=== PATIENT | male | born 1945 | race Asian ===

== ENCOUNTER 2016-08-26 17:09 | Emergency (ER) | payer OTHER ==
[~2016-08-26] VITALS: Ht 167.6 cm; Wt 59.1 kg
[~2016-08-26 17:09] MED LIST: ALBU8.5H IH; ALLO300 PO; CELE200 PO; FLUT16H NASAL; GABA300C PO; MOME13HF IH; MONT10TA21 PO
[2016-08-26 17:44] LABS: BASOPHILS % (AUTO) 0.3 % (0.0-2.0); EOSINOPHILS % (AUTO) 2.1 % (1.0-6.0); HEMATOCRIT 48.1 % (41-53); LYMPHOCYTES # (AUTO) 1.9 K/uL (1.0-4.8); LYMPHOCYTES % (AUTO) 16.6 % (22.0-44.0); MEAN CORPUSCULAR HEMOGLOBIN 26.3 pg (26.0-34.0); MEAN CORPUSCULAR HGB CONC 31.2 G/dL (31.0-37.0); MEAN CORPUSCULAR VOLUME 84 fL (80-100); MONOCYTES # (AUTO) 1.6 K/uL (0.1-1.0); MONOCYTES % (AUTO) 13.8 % (2.0-9.0); NEUTROPHILS # (AUTO) 7.8 K/uL (1.8-7.7); NEUTROPHILS % (AUTO) 67.2 % (40.0-70.0); PLATELET COUNT (AUTO) 206 K/uL (150-450); RED BLOOD CELL COUNT(AUTO) 5.71 MIL/uL (4.50-5.90); RED CELL DISTRIBUTION WIDTH 14.6 % (11.5-14.5); WHITE BLOOD COUNT (AUTO) 11.6 K/uL (4.5-11.0)
[2016-08-26 17:51] LABS: CALCIUM, TOTAL 8.9 mg/dL (8.8-10.5); CREATININE 1.23 mg/dL (0.60-1.30); POTASSIUM 3.4 mmol/L (3.5-5.1)
[2016-08-26 17:56] LABS: ALBUMIN 3.7 g/dL (3.4-5.0); BILIRUBIN,TOTAL 0.3 mg/dL (0.1-1.0); TOTAL PROTEIN, SERUM 7.4 g/dL (6.4-8.2)
[2016-08-26] MEDS: ONDANSETRON HCL 4 MG/2 ML VIAL IVP ONE (19:17)
[2016-08-26] MEDS: MORPHINE SULFATE 4 MG/ML SYRINGE IVP ONE (19:18)
[2016-08-26 22:57] VITALS: BP 132/82
== END 2016-08-26 23:14 | disposition home or self-care (01) ==
LOC: EMS 17:10
DX: R07.89 Other chest pain (principal); F41.9 Anxiety disorder, unspecified; J45.909 Unspecified asthma, uncomplicated; J44.9 Chronic obstructive pulmonary disease, unspecified; I10 Essential (primary) hypertension; Z87.891 Personal history of nicotine dependence
CPT/HCPCS: 36415; 71010; 71260; 80053; 84484; 85025; 93005; 96374; 96375; 99285; J2270; J2405

== ENCOUNTER 2016-09-11 19:14 | Emergency (ER) | payer OTHER ==
[~2016-09-11] VITALS: Ht 165.1 cm; Wt 77.3 kg
[2016-09-11 19:31] LABS: GLUCOSE,POINT OF CARE 86 MG/DL (70-110)
[2016-09-11] MEDS ORDERED: SUCR1TAB PO (19:41)
[2016-09-11] MEDS ORDERED: OMEP20 PO (19:41)
[2016-09-11] MEDS ORDERED: CEPH125S23 PO (19:41)
[2016-09-11 21:37] LABS: APPEARANCE,URINE CLEAR (CLEAR); GLUCOSE, URINE (UA) NEGATIVE (NEGATIVE); KETONES,URINE NEGATIVE (NEGATIVE); LEUKOCYTE ESTERASE ,URINE NEGATIVE (NEGATIVE); OCCULT BLOOD,URINE NEGATIVE (NEGATIVE); PH,URINE 5.5 (5.0-8.0); PROTEIN,URINE NEGATIVE (NEGATIVE)
[2016-09-11 21:43] LABS: ADD UA MICROSCOPIC NO
[2016-09-11 22:05] LABS: ANION GAP 10 mmol/L (8-16); CALCIUM, TOTAL 9.5 mg/dL (8.8-10.5); CARBON DIOXIDE 29 mmol/L (22-29); CHLORIDE 102 mmol/L (98-107); CREATININE 1.07 mg/dL (0.60-1.30); GLOMERULAR FILTR. RATE CALC > 60 mL/min (>60); POTASSIUM 3.8 mmol/L (3.5-5.1); SODIUM SERUM 141 mmol/L (136-145); UREA NITROGEN, BLOOD 11 mg/dL (7-18)
[2016-09-11 22:29] LABS: ALANINE AMINOTRANSFERASE 41 U/L (12-78); ALBUMIN 4.5 g/dL (3.4-5.0); ASPARTATE AMINOTRANSFERASE 35 U/L (15-37); BILIRUBIN,TOTAL 0.6 mg/dL (0.1-1.0); CREATINE KINASE, TOTAL 256 U/L (39-308)
[2016-09-11 22:31] LABS: CREATINE KINASE MB < 0.5 ng/mL (0-5)
[2016-09-11] MEDS ORDERED: MethylPREDNISolone SOD SUCC 125 MG/2 ML VIAL IVP ONE (22:45)
[2016-09-11] MEDS ORDERED: ALBUTEROL SULFATE 2.5 MG/0.5 ML NEB SOLUTION NEB ONE (22:45)
[2016-09-11 22:47] LABS: BASOPHILS % (AUTO) 0.7 % (0.0-2.0); EOSINOPHILS % (AUTO) 2.3 % (1.0-6.0); HEMATOCRIT 45.9 % (41-53); HEMOGLOBIN 14.2 g/dL (13.5-17.5); LYMPHOCYTES # (AUTO) 1.9 K/uL (1.0-4.8); LYMPHOCYTES % (AUTO) 24.6 % (22.0-44.0); MEAN CORPUSCULAR HEMOGLOBIN 26.1 pg (26.0-34.0); MEAN CORPUSCULAR HGB CONC 30.9 G/dL (31.0-37.0); MEAN CORPUSCULAR VOLUME 85 fL (80-100); MONOCYTES # (AUTO) 0.9 K/uL (0.1-1.0); MONOCYTES % (AUTO) 11.3 % (2.0-9.0); NEUTROPHILS # (AUTO) 4.7 K/uL (1.8-7.7); NEUTROPHILS % (AUTO) 61.1 % (40.0-70.0); PLATELET COUNT (AUTO) 227 K/uL (150-450); RED BLOOD CELL COUNT(AUTO) 5.43 MIL/uL (4.50-5.90); RED CELL DISTRIBUTION WIDTH 13.9 % (11.5-14.5); WHITE BLOOD COUNT (AUTO) 7.7 K/uL (4.5-11.0)
[2016-09-11 22:48] LABS: PROTHROMBIN TIME 10.7 SEC (9.4-11.6)
[2016-09-11] MEDS ORDERED: 0.9% SODIUM CHLORIDE 5 ML NEB SOLUTION NEB ONE (23:01)
[2016-09-11 23:13] LABS: ORIG DRAW (USER) PTCARESTAF
[2016-09-11 23:17] LABS: RBC MORPHOLOGY COMMENT NORMAL RBC MORPH
[2016-09-11 23:20] VITALS: BP 143/87
== END 2016-09-11 23:49 | disposition home or self-care (01) ==
LOC: EMS 19:15
DX: J44.9 Chronic obstructive pulmonary disease, unspecified (principal); J45.909 Unspecified asthma, uncomplicated; I10 Essential (primary) hypertension; Z87.891 Personal history of nicotine dependence
CPT/HCPCS: 36415; 71010; 80053; 81003; 82550; 82553; 82962; 83880; 84484; 85025; 85610; 85730; 93005; 94640; 96374; 99285; J2930

== ENCOUNTER 2016-10-02 10:32 | Emergency (ER) | payer OTHER ==
[~2016-10-02] VITALS: Ht 167.6 cm; Wt 59.1 kg
[~2016-10-02 10:32] MED LIST changes: +CEPH125S23 PO; +OMEP20 PO; +SUCR1TAB PO
[2016-10-02] MEDS ORDERED: ASPIRIN 81 MG CHEWABLE TABLET PO ONE (11:15)
[2016-10-02 12:04] LABS: BASOPHILS # (AUTO) 0.05 K/uL (0.00-0.20); BASOPHILS % (AUTO) 0.9 % (0.0-2.0); EOSINOPHILS # (AUTO) 0.27 K/uL (0.00-0.70); EOSINOPHILS % (AUTO) 4.77 % (1.0-6.0); HEMATOCRIT 41.5 % (41-53); HEMOGLOBIN 13.2 g/dL (13.5-17.5); LYMPHOCYTES # (AUTO) 1.4 K/uL (1.0-4.8); LYMPHOCYTES % (AUTO) 25.6 % (22.0-44.0); MEAN CORPUSCULAR HEMOGLOBIN 26.9 pg (26.0-34.0); MEAN CORPUSCULAR HGB CONC 31.8 G/dL (31.0-37.0); MEAN CORPUSCULAR VOLUME 85 fL (80-100); MONOCYTES # (AUTO) 0.5 K/uL (0.1-1.0); MONOCYTES % (AUTO) 8.5 % (2.0-9.0); NEUTROPHILS # (AUTO) 3.4 K/uL (1.8-7.7); NEUTROPHILS % (AUTO) 60.2 % (40.0-70.0); PLATELET COUNT (AUTO) 170 K/uL (150-450); RED BLOOD CELL COUNT(AUTO) 4.91 MIL/uL (4.50-5.90); RED CELL DISTRIBUTION WIDTH 14.6 % (11.5-14.5); WHITE BLOOD COUNT (AUTO) 5.6 K/uL (4.5-11.0)
[2016-10-02 12:16] LABS: ANION GAP 9 mmol/L (8-16); CALCIUM, TOTAL 8.7 mg/dL (8.8-10.5); CARBON DIOXIDE 30 mmol/L (22-29); CHLORIDE 104 mmol/L (98-107); CREATININE 1.06 mg/dL (0.60-1.30); GLOMERULAR FILTR. RATE CALC > 60 mL/min (>60); POTASSIUM 3.4 mmol/L (3.5-5.1); SODIUM SERUM 143 mmol/L (136-145); UREA NITROGEN, BLOOD 10 mg/dL (7-18)
[2016-10-02 12:18] LABS: PROTHROMBIN TIME 10.7 SEC (9.4-11.6)
[2016-10-02 12:24] LABS: APPEARANCE,URINE CLEAR (CLEAR); GLUCOSE, URINE (UA) NEGATIVE (NEGATIVE); KETONES,URINE NEGATIVE (NEGATIVE); LEUKOCYTE ESTERASE ,URINE NEGATIVE (NEGATIVE); OCCULT BLOOD,URINE NEGATIVE (NEGATIVE); PH,URINE 6.5 (5.0-8.0); PROTEIN,URINE NEGATIVE (NEGATIVE)
[2016-10-02 12:26] LABS: ADD UA MICROSCOPIC NO
[2016-10-02 12:41] LABS: ALANINE AMINOTRANSFERASE 28 U/L (12-78); ALBUMIN 3.8 g/dL (3.4-5.0); ASPARTATE AMINOTRANSFERASE 20 U/L (15-37); BILIRUBIN,TOTAL 0.6 mg/dL (0.1-1.0); CREATINE KINASE MB < 0.5 ng/mL (0-5); CREATINE KINASE, TOTAL 172 U/L (39-308); TOTAL PROTEIN, SERUM 6.6 g/dL (6.4-8.2)
[2016-10-02 12:43] LABS: B-TYPE NATRIURETIC PEPTIDE 25 pg/mL (0-100)
[2016-10-02] MEDS ORDERED: ONDANSETRON HCL 4 MG/2 ML VIAL IVP ONE (13:00)
[2016-10-02] MEDS ORDERED: SODIUM CHLORIDE 0.9% 1,000 ML IV ONE (13:00)
[2016-10-02] MEDS ORDERED: HYDROmorphone 2 MG/ML SYRINGE IVP ONE (13:00)
[2016-10-02] MEDS ORDERED: IOVERSOL 350 MG/ML 100 ML VIAL ONE (13:38)
[2016-10-02] MEDS ORDERED: SODIUM CHLORIDE 0.9% 100 ML ONE (13:38)
[2016-10-02 17:50] VITALS: BP 170/80
[2016-10-03] MEDS ORDERED: ASPIRIN 81 MG CHEWABLE TABLET PO ONE (10:00)
[2016-10-03] MEDS ORDERED: NITROGLYCERIN 2% (1 GM=INCH) PACKET TP ONE ×2 (10:00→10:30)
[2016-10-03] MEDS ORDERED: OXYGEN THERAPY IH SCH (10:00)
[2016-10-03] MEDS ORDERED: HYDROCODONE/ACETAMINOPHEN 5-325 MG TABLET PO ONE (10:00)
== END 2016-10-02 17:53 | disposition home or self-care (01) ==
LOC: EMS 10:33
DX: R07.89 Other chest pain (principal); R51 Headache; J44.9 Chronic obstructive pulmonary disease, unspecified; J45.909 Unspecified asthma, uncomplicated; I10 Essential (primary) hypertension; Z87.891 Personal history of nicotine dependence
CPT/HCPCS: 36415; 71010; 71275; 80053; 81003; 82550; 82553; 83880; 84484; 85025; 85379; 85610; 85730; 93005; 96361; 96374; 96375; 99285; J1170; J2405; J7030; J7050; Q9967

== ENCOUNTER 2016-10-02 22:05 | Inpatient (IN) | payer OTHER ==
[~2016-10-02] VITALS: Ht 167.6 cm; Wt 56.8 kg
[2016-10-03] VITALS (7 sets, daily range): BP systolic 113–146; BP diastolic 66–75
[2016-10-03] MEDS ORDERED: ASPIRIN 325 MG TABLET PO ONE
[2016-10-03] MEDS ORDERED: ONDANSETRON HCL 4 MG/2 ML VIAL IVP ONE
[2016-10-03] MEDS ORDERED: NITROGLYCERIN 0.4 MG SUBLINGUAL TABLET #25 SL ONE
[2016-10-03 00:20] LABS: BASOPHILS % (AUTO) 0.6 % (0.0-2.0); EOSINOPHILS % (AUTO) 5.6 % (1.0-6.0); HEMATOCRIT 39.8 % (41-53); HEMOGLOBIN 12.3 g/dL (13.5-17.5); LYMPHOCYTES # (AUTO) 1.6 K/uL (1.0-4.8); LYMPHOCYTES % (AUTO) 25.6 % (22.0-44.0); MEAN CORPUSCULAR HEMOGLOBIN 26.1 pg (26.0-34.0); MEAN CORPUSCULAR VOLUME 84 fL (80-100); MONOCYTES # (AUTO) 0.7 K/uL (0.1-1.0); MONOCYTES % (AUTO) 11.2 % (2.0-9.0); NEUTROPHILS # (AUTO) 3.5 K/uL (1.8-7.7); PLATELET COUNT (AUTO) 166 K/uL (150-450); RED BLOOD CELL COUNT(AUTO) 4.73 MIL/uL (4.50-5.90); RED CELL DISTRIBUTION WIDTH 14.6 % (11.5-14.5); WHITE BLOOD COUNT (AUTO) 6.2 K/uL (4.5-11.0)
[2016-10-03 00:31] LABS: ANION GAP 8 mmol/L (8-16); CALCIUM, TOTAL 8.3 mg/dL (8.8-10.5); CARBON DIOXIDE 27 mmol/L (22-29); CHLORIDE 106 mmol/L (98-107); GLOMERULAR FILTR. RATE CALC > 60 mL/min (>60); POTASSIUM 3.4 mmol/L (3.5-5.1); SODIUM SERUM 141 mmol/L (136-145); UREA NITROGEN, BLOOD 9 mg/dL (7-18)
[2016-10-03 00:37] LABS: ALANINE AMINOTRANSFERASE 21 U/L (12-78); ALBUMIN 3.5 g/dL (3.4-5.0); ASPARTATE AMINOTRANSFERASE 18 U/L (15-37); BILIRUBIN,TOTAL 0.7 mg/dL (0.1-1.0); TOTAL PROTEIN, SERUM 6.2 g/dL (6.4-8.2)
[2016-10-03] MEDS ORDERED: ACETAMINOPHEN 325 MG TABLET PO PRN (02:45)
[2016-10-03] MEDS ORDERED: 0.9% SODIUM CHLORIDE 10 ML SYRINGE IVP PRN (02:45)
[2016-10-03] MEDS ORDERED: ONDANSETRON HCL 4 MG/2 ML VIAL IVP PRN ×2 (02:45→13:15)
[2016-10-03] MEDS ORDERED: POTASSIUM CHLORIDE 10% 40 MEQ/30 ML LIQUID UDCUP PO ONE (05:00)
[2016-10-03] MEDS ORDERED: HYDROCODONE/ACETAMINOPHEN 5-325 MG TABLET PO PRN (10:45)
[2016-10-03] MEDS: OXYGEN THERAPY IH SCH ×2 (11:34→19:24)
[2016-10-03] MEDS: NITROGLYCERIN 2% (1 GM=INCH) PACKET TP SCH ×2 (11:40→17:52)
[2016-10-03] MEDS: HEPARIN SODIUM,PORCINE 5,000 UNITS/ML VIAL SQ SCH ×2 (11:40→16:00)
[2016-10-03] MEDS: ASPIRIN 81 MG CHEWABLE TABLET PO SCH (11:41)
[2016-10-03] MEDS: CEPHALEXIN MONOHYDRATE 500 MG CAPSULE PO SCH ×2 (14:10→17:52)
[2016-10-03] MEDS: GABAPENTIN 300 MG CAPSULE PO SCH ×2 (16:12→21:50)
[2016-10-03] MEDS: SUCRALFATE 1 GM TABLET PO SCH ×2 (16:12→21:49)
[2016-10-03] MEDS ORDERED: FORMOTEROL IH SCH (21:00)
[2016-10-03] MEDS ORDERED: MOMETASONE IH SCH (21:00)
[2016-10-03] MEDS: FLUTICASONE PROPIONATE 50 MCG/SPRAY 16 GM NASAL SPRAY NASAL SCH (21:49)
[2016-10-03] MEDS: OMEPRAZOLE 20 MG CAPSULE PO SCH (21:49)
[2016-10-03] MEDS: IBUPROFEN 400 MG TABLET PO PRN (21:50)
[2016-10-04] MEDS: HEPARIN SODIUM,PORCINE 5,000 UNITS/ML VIAL SQ SCH ×3 (00:15→16:52)
[2016-10-04] MEDS: CEPHALEXIN MONOHYDRATE 500 MG CAPSULE PO SCH ×3 (00:16→12:24)
[2016-10-04] MEDS: NITROGLYCERIN 2% (1 GM=INCH) PACKET TP SCH ×3 (00:16→12:24)
[2016-10-04 04:44] VITALS: BP 130/74
[2016-10-04 06:39] LABS: BASOPHILS % (AUTO) 0.8 % (0.0-2.0); EOSINOPHILS % (AUTO) 9.1 % (1.0-6.0); HEMATOCRIT 40.2 % (41-53); HEMOGLOBIN 12.4 g/dL (13.5-17.5); LYMPHOCYTES # (AUTO) 1.5 K/uL (1.0-4.8); LYMPHOCYTES % (AUTO) 25.4 % (22.0-44.0); MEAN CORPUSCULAR HEMOGLOBIN 25.9 pg (26.0-34.0); MEAN CORPUSCULAR HGB CONC 30.9 G/dL (31.0-37.0); MEAN CORPUSCULAR VOLUME 84 fL (80-100); MONOCYTES # (AUTO) 0.6 K/uL (0.1-1.0); MONOCYTES % (AUTO) 10.9 % (2.0-9.0); NEUTROPHILS # (AUTO) 3.1 K/uL (1.8-7.7); NEUTROPHILS % (AUTO) 53.8 % (40.0-70.0); PLATELET COUNT (AUTO) 178 K/uL (150-450); RED BLOOD CELL COUNT(AUTO) 4.78 MIL/uL (4.50-5.90); RED CELL DISTRIBUTION WIDTH 13.9 % (11.5-14.5); WHITE BLOOD COUNT (AUTO) 5.8 K/uL (4.5-11.0)
[2016-10-04 06:53] LABS: HEMOGLOBIN A1C 5.5 % (4.5-6.2)
[2016-10-04 06:58] LABS: ALANINE AMINOTRANSFERASE 26 U/L (12-78); ALBUMIN 3.3 g/dL (3.4-5.0); ANION GAP 8 mmol/L (8-16); ASPARTATE AMINOTRANSFERASE 22 U/L (15-37); BILIRUBIN,TOTAL 0.5 mg/dL (0.1-1.0); CALCIUM, TOTAL 8.7 mg/dL (8.8-10.5); CARBON DIOXIDE 28 mmol/L (22-29); CHLORIDE 105 mmol/L (98-107); CHOL/HDL RATIO 2.8 (4.2-7.3); CREATININE 0.96 mg/dL (0.60-1.30); GLOMERULAR FILTR. RATE CALC > 60 mL/min (>60); POTASSIUM 3.7 mmol/L (3.5-5.1); SODIUM SERUM 141 mmol/L (136-145); TOTAL PROTEIN, SERUM 6.1 g/dL (6.4-8.2); UREA NITROGEN, BLOOD 10 mg/dL (7-18)
[2016-10-04 07:07] VITALS: BP 121/68
[2016-10-04] MEDS: OXYGEN THERAPY IH SCH (08:46)
[2016-10-04] MEDS: FLUTICASONE PROPIONATE 50 MCG/SPRAY 16 GM NASAL SPRAY NASAL SCH (08:47)
[2016-10-04] MEDS: OMEPRAZOLE 20 MG CAPSULE PO SCH (08:48)
[2016-10-04] MEDS: ASPIRIN 81 MG CHEWABLE TABLET PO SCH (08:48)
[2016-10-04] MEDS: GABAPENTIN 300 MG CAPSULE PO SCH ×2 (08:48→16:52)
[2016-10-04] MEDS: SUCRALFATE 1 GM TABLET PO SCH (08:49)
[2016-10-04] MEDS: IBUPROFEN 400 MG TABLET PO PRN (08:51)
[2016-10-04] MEDS ORDERED: MONTELUKAST SODIUM 10 MG TABLET PO SCH (09:00)
[2016-10-04] MEDS ORDERED: ALLOPURINOL 300 MG TABLET PO SCH (09:00)
[2016-10-04] MEDS ORDERED: CELECOXIB 200 MG CAPSULE PO SCH (09:00)
[2016-10-04] MEDS ORDERED: CEPH500 PO (10:46)
[2016-10-04 11:36] VITALS: BP 143/73
[2016-10-04 15:17] VITALS: BP 102/55
== END 2016-10-04 18:17 | disposition home or self-care (01) | DRG 313 ==
LOC: EMS 22:06 → AHU 10-03 08:36 → 5S 10-03 18:51
PROVIDERS: ADMIT Family Medicine; ATTEND Family Medicine
DX: R07.89 Other chest pain (principal); J44.1 Chronic obstructive pulmonary disease with (acute) exacerbation; I10 Essential (primary) hypertension; F41.9 Anxiety disorder, unspecified; J45.909 Unspecified asthma, uncomplicated; G89.4 Chronic pain syndrome; Z79.899 Other long term (current) drug therapy; Z90.2 Acquired absence of lung [part of]; Z87.01 Personal history of pneumonia (recurrent); Z86.711 Personal history of pulmonary embolism; Z87.891 Personal history of nicotine dependence
CPT/HCPCS: 83036; 83735; 93005; 93306; 96374; 99285; J1644; J2405

== ENCOUNTER 2017-07-17 11:25 | Emergency (ER) | payer MEDICARE, OTHER ==
[~2017-07-17] VITALS: Ht 167.6 cm; Wt 62.7 kg
[~2017-07-17 11:25] MED LIST changes: -ALBU8.5H IH; +ALBU8.5H8 IH; -CEPH125S23 PO; +CEPH500 PO
[2017-07-17] MEDS ORDERED: ACYC800T PO (11:40)
[2017-07-17] MEDS ORDERED: LEVO5TAB13 PO (11:40)
[2017-07-17] MEDS ORDERED: DIPH25 PO (11:40)
[2017-07-17] MEDS ORDERED: IBUPROFEN 800 MG TABLET PO ONE (14:15)
[2017-07-17 14:31] VITALS: BP 164/75
== END 2017-07-17 14:51 | disposition home or self-care (01) ==
LOC: EMS 11:27
DX: B02.9 Zoster without complications (principal); J45.909 Unspecified asthma, uncomplicated; I10 Essential (primary) hypertension; J18.9 Pneumonia, unspecified organism; G89.29 Other chronic pain; Z86.711 Personal history of pulmonary embolism; Z87.891 Personal history of nicotine dependence; Z79.899 Other long term (current) drug therapy
CPT/HCPCS: 99283

== ENCOUNTER 2017-09-10 16:51 | Emergency (ER) | payer MEDICARE, OTHER ==
[~2017-09-10] VITALS: Ht 167.6 cm; Wt 58.2 kg
[~2017-09-10 16:51] MED LIST changes: +ACYC800T PO; -ALLO300 PO; -CELE200 PO; -CEPH500 PO; +DIPH25 PO; -FLUT16H NASAL; +LEVO5TAB13 PO; -OMEP20 PO; -SUCR1TAB PO
[2017-09-10] MEDS ORDERED: PRED10 PO (17:05)
[2017-09-10] MEDS ORDERED: AMLO-512 PO (17:05)
[2017-09-10] MEDS ORDERED: LISI1TAB11 PO (17:05)
[2017-09-10] MEDS ORDERED: SODIUM CHLORIDE 0.9% 1,000 ML IV ONE (17:45)
[2017-09-10 18:03] LABS: BASOPHILS % (AUTO) 0.5 % (0.0-2.0); EOSINOPHILS % (AUTO) 4.2 % (1.0-6.0); HEMATOCRIT 43.5 % (41-53); HEMOGLOBIN 14.1 g/dL (13.5-17.5); LYMPHOCYTES # (AUTO) 1.6 K/uL (1.0-4.8); LYMPHOCYTES % (AUTO) 11.9 % (22.0-44.0); MEAN CORPUSCULAR HEMOGLOBIN 27.3 pg (26.0-34.0); MEAN CORPUSCULAR HGB CONC 32.3 G/dL (31.0-37.0); MEAN CORPUSCULAR VOLUME 85 fL (80-100); MONOCYTES # (AUTO) 1.6 K/uL (0.1-1.0); MONOCYTES % (AUTO) 12.1 % (2.0-9.0); NEUTROPHILS # (AUTO) 9.3 K/uL (1.8-7.7); NEUTROPHILS % (AUTO) 71.3 % (40.0-70.0); PLATELET COUNT (AUTO) 223 K/uL (150-450); RED BLOOD CELL COUNT(AUTO) 5.15 MIL/uL (4.50-5.90)
[2017-09-10 18:12] LABS: CREATININE 2.69 mg/dL (0.60-1.30)
[2017-09-10 18:19] LABS: ALBUMIN 3.4 g/dL (3.4-5.0); BILIRUBIN,TOTAL 0.3 mg/dL (0.1-1.0); TOTAL PROTEIN, SERUM 6.5 g/dL (6.4-8.2)
[2017-09-10 20:58] VITALS: BP 123/71
== END 2017-09-10 21:06 | disposition home or self-care (01) ==
LOC: EMS 16:52
DX: R42 Dizziness and giddiness (principal); R21 Rash and other nonspecific skin eruption; N28.9 Disorder of kidney and ureter, unspecified; J44.9 Chronic obstructive pulmonary disease, unspecified; J45.909 Unspecified asthma, uncomplicated; I10 Essential (primary) hypertension; Z87.891 Personal history of nicotine dependence
CPT/HCPCS: 96360; 96361; 99285

== ENCOUNTER 2017-09-11 20:34 | Emergency (ER) | payer MEDICARE, OTHER ==
[~2017-09-11] VITALS: Ht 165.1 cm; Wt 67.3 kg
[~2017-09-11 20:34] MED LIST changes: +AMLO-512 PO; +LISI1TAB11 PO; +PRED10 PO
[2017-09-11] MEDS ORDERED: SODIUM CHLORIDE 0.9% 1,000 ML IV ONE (23:00)
[2017-09-11 23:34] LABS: EOSINOPHILS % (AUTO) 3.8 % (1.0-6.0); HEMATOCRIT 42.8 % (41-53); HEMOGLOBIN 13.8 g/dL (13.5-17.5); LYMPHOCYTES # (AUTO) 1.6 K/uL (1.0-4.8); LYMPHOCYTES % (AUTO) 13.6 % (22.0-44.0); MEAN CORPUSCULAR HEMOGLOBIN 27.5 pg (26.0-34.0); MEAN CORPUSCULAR HGB CONC 32.3 G/dL (31.0-37.0); MEAN CORPUSCULAR VOLUME 85 fL (80-100); MONOCYTES # (AUTO) 1.1 K/uL (0.1-1.0); MONOCYTES % (AUTO) 9.7 % (2.0-9.0); NEUTROPHILS # (AUTO) 8.3 K/uL (1.8-7.7); NEUTROPHILS % (AUTO) 71.9 % (40.0-70.0); PLATELET COUNT (AUTO) 202 K/uL (150-450); RED BLOOD CELL COUNT(AUTO) 5.03 MIL/uL (4.50-5.90); RED CELL DISTRIBUTION WIDTH 14.9 % (11.5-14.5)
[2017-09-11 23:46] LABS: ANION GAP 8 mmol/L (8-16); CALCIUM, TOTAL 9.1 mg/dL (8.8-10.5); CARBON DIOXIDE 27 mmol/L (22-29); CHLORIDE 102 mmol/L (98-107); CREATININE 1.59 mg/dL (0.60-1.30); GLOMERULAR FILTR. RATE CALC 43 mL/min (>60); GLUCOSE,RANDOM 75 mg/dL (70-110); POTASSIUM 4.4 mmol/L (3.5-5.1); SODIUM SERUM 137 mmol/L (136-145); UREA NITROGEN, BLOOD 24 mg/dL (7-18)
[2017-09-11 23:57] LABS: B-TYPE NATRIURETIC PEPTIDE 15 pg/mL (0-100)
[2017-09-12 00:11] LABS: ALANINE AMINOTRANSFERASE 60 U/L (12-78); ALBUMIN 3.6 g/dL (3.4-5.0); ALKALINE PHOSPHATASE 63 U/L (46-116); ASPARTATE AMINOTRANSFERASE 25 U/L (15-37); BILIRUBIN,TOTAL 0.5 mg/dL (0.1-1.0); CREATINE KINASE MB 1.4 ng/mL (0-5); CREATINE KINASE, TOTAL 129 U/L (39-308); TOTAL PROTEIN, SERUM 6.8 g/dL (6.4-8.2)
[2017-09-12] MEDS ORDERED: SODIUM CHLORIDE 0.9% 1,000 ML IV ONE (00:30)
[2017-09-12] MEDS ORDERED: MECLIZINE HCL 25 MG TABLET PO ONE (00:30)
[2017-09-12 00:41] LABS: APPEARANCE,URINE CLEAR (CLEAR); BILIRUBIN,URINE NEGATIVE (NEGATIVE); GLUCOSE, URINE (UA) NEGATIVE (NEGATIVE); KETONES,URINE NEGATIVE (NEGATIVE); LEUKOCYTE ESTERASE ,URINE NEGATIVE (NEGATIVE); NITRATE,URINE NEGATIVE (NEGATIVE); OCCULT BLOOD,URINE NEGATIVE (NEGATIVE); PH,URINE 6.5 (5.0-8.0); PROTEIN,URINE NEGATIVE (NEGATIVE); UROBILINOGEN,URINE 0.2 mg/dL (<=1.0)
[2017-09-12 00:47] LABS: AMPHET/METH SCREEN,URINE NEGATIVE (NEGATIVE); BARBITURATE SCREEN, URINE NEGATIVE (NEGATIVE); BENZODIAZEPINES SCREEN,URINE NEGATIVE (NEGATIVE); CANNABINOID SCREEN,URINE NEGATIVE (NEGATIVE); COCAINE SCREEN,URINE NEGATIVE (NEGATIVE); METHADONE SCREEN, URINE NEGATIVE (NEGATIVE); OPIATE SCREEN,URINE NEGATIVE (NEGATIVE)
[2017-09-12 00:48] LABS: PHENCYCLIDINE SCREEN,URINE NEGATIVE (NEGATIVE)
[2017-09-12 01:19] VITALS: BP 120/74
== END 2017-09-12 01:53 | disposition home or self-care (01) ==
LOC: EMS 20:36
DX: R42 Dizziness and giddiness (principal); N19 Unspecified kidney failure; J45.909 Unspecified asthma, uncomplicated; J44.9 Chronic obstructive pulmonary disease, unspecified; I10 Essential (primary) hypertension; G89.29 Other chronic pain; Z86.711 Personal history of pulmonary embolism; Z87.891 Personal history of nicotine dependence; Z79.899 Other long term (current) drug therapy
CPT/HCPCS: 36415; 80053; 80307; 81003; 82550; 82553; 83880; 84484; 85025; 93005; 96360; 96361; 99285; J7030

== ENCOUNTER 2017-09-17 23:45 | Inpatient (IN) | payer MEDICARE, OTHER ==
[~2017-09-17] VITALS: Ht 167.6 cm; Wt 55.8 kg
[~2017-09-17 23:45] MED LIST changes: -ACYC800T PO; -DIPH25 PO; -LEVO5TAB13 PO; -MOME13HF IH; -MONT10TA21 PO
[2017-09-18 00:47] LABS: BASOPHILS % (AUTO) 0.6 % (0.0-2.0); EOSINOPHILS % (AUTO) 6.3 % (1.0-6.0); HEMATOCRIT 37.8 % (41-53); HEMOGLOBIN 12.4 g/dL (13.5-17.5); LYMPHOCYTES # (AUTO) 1.5 K/uL (1.0-4.8); LYMPHOCYTES % (AUTO) 9.5 % (22.0-44.0); MEAN CORPUSCULAR HEMOGLOBIN 27.8 pg (26.0-34.0); MEAN CORPUSCULAR HGB CONC 32.9 G/dL (31.0-37.0); MEAN CORPUSCULAR VOLUME 85 fL (80-100); MONOCYTES # (AUTO) 1.6 K/uL (0.1-1.0); MONOCYTES % (AUTO) 10.7 % (2.0-9.0); NEUTROPHILS # (AUTO) 11.2 K/uL (1.8-7.7); NEUTROPHILS % (AUTO) 72.9 % (40.0-70.0); PLATELET COUNT (AUTO) 231 K/uL (150-450); RED BLOOD CELL COUNT(AUTO) 4.47 MIL/uL (4.50-5.90); RED CELL DISTRIBUTION WIDTH 14.9 % (11.5-14.5)
[2017-09-18 00:54] LABS: CALCIUM, TOTAL 8.9 mg/dL (8.8-10.5); CREATININE 2.06 mg/dL (0.60-1.30); POTASSIUM 4.1 mmol/L (3.5-5.1)
[2017-09-18 01:00] LABS: BILIRUBIN,TOTAL 0.3 mg/dL (0.1-1.0); TOTAL PROTEIN, SERUM 6.2 g/dL (6.4-8.2)
[2017-09-18] MEDS ORDERED: FentaNYL CITRATE-PF 100 MCG/2 ML VIAL IVP ONE (01:00)
[2017-09-18] MEDS ORDERED: ONDANSETRON HCL 4 MG/2 ML VIAL IVP ONE (01:00)
[2017-09-18] MEDS ORDERED: SODIUM CHLORIDE 0.9% 1,000 ML IV ONE (01:00)
[2017-09-18 02:16] LABS: APPEARANCE,URINE CLEAR (CLEAR); BILIRUBIN,URINE NEGATIVE (NEGATIVE); GLUCOSE, URINE (UA) NEGATIVE (NEGATIVE); KETONES,URINE NEGATIVE (NEGATIVE); LEUKOCYTE ESTERASE ,URINE NEGATIVE (NEGATIVE); NITRATE,URINE NEGATIVE (NEGATIVE); OCCULT BLOOD,URINE NEGATIVE (NEGATIVE); PH,URINE 5.5 (5.0-8.0); PROTEIN,URINE NEGATIVE (NEGATIVE); UROBILINOGEN,URINE 0.2 mg/dL (<=1.0)
[2017-09-18 02:33] LABS: BACTERIA,URINE None Seen /HPF (None Seen); RBC,URINE None Seen /HPF (0-2); SQUAMOUS EPITHELIAL CELL,UR None Seen /LPF (None Seen); WBC,URINE None Seen /HPF (0-5)
[2017-09-18] MEDS ORDERED: DEXTROSE 5%-0.45% SODIUM CHL 1,000 ML IV ONE (03:00)
[2017-09-18] MEDS ORDERED: 0.9% SODIUM CHLORIDE 10 ML SYRINGE IVP PRN ×2 (03:00→18:30)
[2017-09-18] MEDS ORDERED: ONDANSETRON HCL 4 MG/2 ML VIAL IVP PRN ×2 (03:00→18:30)
[2017-09-18] MEDS ORDERED: ACETAMINOPHEN 325 MG TABLET PO PRN (03:00)
[2017-09-18 04:07] VITALS: BP 125/78
[2017-09-18 08:14] VITALS: BP 143/79
[2017-09-18 11:27] VITALS: BP 121/62
[2017-09-18] MEDS ORDERED: MORPHINE SULFATE 4 MG/ML SYRINGE IVP PRN (18:45)
[2017-09-18] MEDS: PANTOPRAZOLE SODIUM 40 MG/VIAL IVP SCH (19:02)
[2017-09-18] MEDS: MORPHINE SULFATE 4 MG/ML SYRINGE IVP PRN (19:02)
[2017-09-18] MEDS: PIPERACILLIN/TAZO 3.375 GM/D5W 50 ML IV SCH (19:05)
[2017-09-18] MEDS: DEXTROSE 5%-0.45% SODIUM CHL 1,000 ML IV SCH (19:06)
[2017-09-18] MEDS ORDERED: PERMETHRIN 5% 60 GM CREAM TP ONE (19:45)
[2017-09-18 20:06] VITALS: BP 113/56
[2017-09-18 23:17] VITALS: BP 113/68
[2017-09-19] MEDS: PIPERACILLIN/TAZO 3.375 GM/D5W 50 ML IV SCH ×4 (00:06→19:43)
[2017-09-19] MEDS: DEXTROSE 5%-0.45% SODIUM CHL 1,000 ML IV SCH ×3 (03:29→19:42)
[2017-09-19 04:22] VITALS: BP 116/65
[2017-09-19 06:26] LABS: ALBUMIN 2.8 g/dL (3.4-5.0); BILIRUBIN,TOTAL 0.8 mg/dL (0.1-1.0); CALCIUM, TOTAL 8.3 mg/dL (8.8-10.5); CREATININE 1.54 mg/dL (0.60-1.30); MAGNESIUM 1.5 mg/dL (1.80-2.40); POTASSIUM 4.1 mmol/L (3.5-5.1); TOTAL PROTEIN, SERUM 5.9 g/dL (6.4-8.2)
[2017-09-19 08:00] VITALS: BP 109/60
[2017-09-19 08:32] LABS: BASOPHILS % (AUTO) 0.7 % (0.0-2.0); HEMATOCRIT 40.1 % (41-53); HEMOGLOBIN 13.2 g/dL (13.5-17.5); LYMPHOCYTES # (AUTO) 1.4 K/uL (1.0-4.8); LYMPHOCYTES % (AUTO) 11.5 % (22.0-44.0); MEAN CORPUSCULAR HEMOGLOBIN 27.8 pg (26.0-34.0); MEAN CORPUSCULAR VOLUME 84 fL (80-100); MONOCYTES # (AUTO) 1.3 K/uL (0.1-1.0); MONOCYTES % (AUTO) 11.1 % (2.0-9.0); NEUTROPHILS # (AUTO) 7.8 K/uL (1.8-7.7); NEUTROPHILS % (AUTO) 65.7 % (40.0-70.0); PLATELET COUNT (AUTO) 223 K/uL (150-450); RED BLOOD CELL COUNT(AUTO) 4.75 MIL/uL (4.50-5.90); RED CELL DISTRIBUTION WIDTH 14.7 % (11.5-14.5)
[2017-09-19] MEDS: PANTOPRAZOLE SODIUM 40 MG/VIAL IVP SCH (09:19)
[2017-09-19 11:25] VITALS: BP 115/68
[2017-09-19] MEDS ORDERED: MAGNESIUM SULFATE 2 GM in DEXTROSE 5%-WATER 50 ML IV ONE (15:00)
[2017-09-19 15:44] VITALS: BP 109/57
[2017-09-19] MEDS ORDERED: BISACODYL 10 MG RECTAL RECTAL SUPPOSITORY PR ONE (16:45)
[2017-09-19 20:49] VITALS: BP 115/67
[2017-09-19 23:35] VITALS: BP 115/58
[2017-09-20] MEDS: PIPERACILLIN/TAZO 3.375 GM/D5W 50 ML IV SCH ×4 (00:46→18:20)
[2017-09-20 04:47] VITALS: BP 115/69
[2017-09-20 07:02] LABS: BASOPHILS % (AUTO) 0.9 % (0.0-2.0); HEMATOCRIT 38.3 % (41-53); HEMOGLOBIN 12.8 g/dL (13.5-17.5); LYMPHOCYTES % (AUTO) 10.3 % (22.0-44.0); MEAN CORPUSCULAR HEMOGLOBIN 28.1 pg (26.0-34.0); MEAN CORPUSCULAR HGB CONC 33.5 G/dL (31.0-37.0); MEAN CORPUSCULAR VOLUME 84 fL (80-100); MONOCYTES # (AUTO) 1.1 K/uL (0.1-1.0); MONOCYTES % (AUTO) 11.4 % (2.0-9.0); NEUTROPHILS # (AUTO) 6.3 K/uL (1.8-7.7); NEUTROPHILS % (AUTO) 64.4 % (40.0-70.0); PLATELET COUNT (AUTO) 225 K/uL (150-450); RED BLOOD CELL COUNT(AUTO) 4.56 MIL/uL (4.50-5.90); RED CELL DISTRIBUTION WIDTH 14.9 % (11.5-14.5)
[2017-09-20 07:03] LABS: PROTHROMBIN TIME 10.7 SEC (9.4-11.6)
[2017-09-20 07:31] LABS: CALCIUM, TOTAL 8.3 mg/dL (8.8-10.5); CREATININE 1.44 mg/dL (0.60-1.30); MAGNESIUM 2.1 mg/dL (1.80-2.40); POTASSIUM 3.8 mmol/L (3.5-5.1)
[2017-09-20 08:01] VITALS: BP 132/71
[2017-09-20] MEDS ORDERED: SODIUM CHLORIDE 0.9% 1,000 ML IV ONE ×2 (10:00→10:19)
[2017-09-20] MEDS ORDERED: BUPIVACAINE/EPI/PF 0.5% 30 ML VIAL ONE (10:28)
[2017-09-20] MEDS ORDERED: SODIUM CL IRRIG SOLN BAG 3,000 ML IRRIG ONE (10:29)
[2017-09-20] MEDS ORDERED: MORPHINE SULFATE 4 MG/ML SYRINGE ONE (11:27)
[2017-09-20] MEDS: MORPHINE SULFATE 4 MG/ML SYRINGE IVP PRN (11:31)
[2017-09-20] MEDS ORDERED: FentaNYL CITRATE-PF 100 MCG/2 ML VIAL IVP ONE (12:00)
[2017-09-20] MEDS ORDERED: GUM MASTIC/STORAX/MSAL/ALCOHOL LIQUID 0.67 ML VIAL TP ONE (12:29)
[2017-09-20] MEDS ORDERED: RINGERS SOLUTION,LACTATED 1,000 ML IV ONE (12:44)
[2017-09-20] MEDS ORDERED: ALBUTEROL SULFATE 2.5 MG/0.5 ML NEB SOLUTION NEB PRN (13:15)
[2017-09-20] MEDS ORDERED: IPRATROPIUM BROMIDE 0.5 MG/2.5 ML NEB SOLUTION NEB PRN (13:15)
[2017-09-20] MEDS ORDERED: IPRATROPIUM BROMIDE 0.5 MG/2.5 ML NEB SOLUTION NEB ONE (13:28)
[2017-09-20] MEDS ORDERED: ALBUTEROL SULFATE 2.5 MG/0.5 ML NEB SOLUTION NEB ONE (13:28)
[2017-09-20] MEDS ORDERED: 0.9% SODIUM CHLORIDE 5 ML NEB SOLUTION NEB ONE (13:29)
[2017-09-20] MEDS ORDERED: HYDROmorphone 2 MG/ML SYRINGE IVP PRN (13:30)
[2017-09-20] MEDS ORDERED: MEPERIDINE-PF 25 MG/ML SYRINGE IVP PRN (13:30)
[2017-09-20] MEDS ORDERED: FentaNYL CITRATE-PF 100 MCG/2 ML VIAL IVP PRN (13:30)
[2017-09-20 14:31] VITALS: BP 122/69
[2017-09-20] MEDS: HYDROmorphone 2 MG/ML SYRINGE IVP PRN ×2 (14:41→18:20)
[2017-09-20 17:20] VITALS: BP 132/78
[2017-09-20] MEDS: PANTOPRAZOLE SODIUM 40 MG/VIAL IVP SCH (18:20)
[2017-09-20 19:45] VITALS: BP 124/72
[2017-09-21 00:10] VITALS: BP 113/69
[2017-09-21] MEDS: HYDROCODONE/ACETAMINOPHEN 5-325 MG TABLET PO PRN (00:27)
[2017-09-21] MEDS: DEXTROSE 5%-0.45% SODIUM CHL 1,000 ML IV SCH ×3 (00:29→17:57)
[2017-09-21] MEDS: PIPERACILLIN/TAZO 3.375 GM/D5W 50 ML IV SCH ×4 (00:29→17:57)
[2017-09-21] MEDS: HYDROmorphone 2 MG/ML SYRINGE IVP PRN ×4 (04:27→20:41)
[2017-09-21 04:43] VITALS: BP 116/61
[2017-09-21] MEDS ORDERED: METOCLOPRAMIDE HCL 5 MG/ML 2 ML VIAL IVP ONE (06:06)
[2017-09-21] MEDS ORDERED: NEOSTIGMINE METHYLSULFATE 1 MG/ML 10 ML VIAL IVP ONE (06:06)
[2017-09-21] MEDS ORDERED: LIDOCAINE HCL/PF 2% 5 ML SYRINGE IVP ONE (06:06)
[2017-09-21] MEDS ORDERED: ALBUTEROL SULFATE HFA 90 MCG/PUFF 8 GM INHALER IH ONE (06:06)
[2017-09-21] MEDS ORDERED: GLYCOPYRROLATE 0.2 MG/ML VIAL IM ONE (06:06)
[2017-09-21] MEDS ORDERED: ROCURONIUM BROMIDE 10 MG/ML 5 ML VIAL IVP ONE (06:06)
[2017-09-21] MEDS ORDERED: PROPOFOL 1% 20 ML VIAL IVP ONE (06:06)
[2017-09-21] MEDS ORDERED: ONDANSETRON HCL 4 MG/2 ML VIAL IVP ONE (06:06)
[2017-09-21 08:11] VITALS: BP 98/60
[2017-09-21] MEDS: PANTOPRAZOLE SODIUM 40 MG/VIAL IVP SCH (09:33)
[2017-09-21 12:49] VITALS: BP 135/60
[2017-09-21 16:06] VITALS: BP 122/72
[2017-09-21 20:03] VITALS: BP 122/67
[2017-09-22] VITALS (7 sets, daily range): BP systolic 100–126; BP diastolic 54–71
[2017-09-22] MEDS: PIPERACILLIN/TAZO 3.375 GM/D5W 50 ML IV SCH ×4 (00:28→17:47)
[2017-09-22] MEDS: TAMSULOSIN HCL 0.4 MG CAPSULE PO SCH ×2 (00:28→20:23)
[2017-09-22] MEDS: OXYGEN THERAPY IH SCH ×3 (00:31→20:25)
[2017-09-22] MEDS: HYDROmorphone 2 MG/ML SYRINGE IVP PRN ×3 (00:55→16:37)
[2017-09-22 06:52] LABS: BASOPHILS % (AUTO) 0.8 % (0.0-2.0); EOSINOPHILS % (AUTO) 11.9 % (1.0-6.0); HEMATOCRIT 40.4 % (41-53); HEMOGLOBIN 13.4 g/dL (13.5-17.5); LYMPHOCYTES # (AUTO) 1.1 K/uL (1.0-4.8); LYMPHOCYTES % (AUTO) 9.9 % (22.0-44.0); MEAN CORPUSCULAR HGB CONC 33.1 G/dL (31.0-37.0); MEAN CORPUSCULAR VOLUME 85 fL (80-100); MONOCYTES # (AUTO) 1.3 K/uL (0.1-1.0); MONOCYTES % (AUTO) 11.8 % (2.0-9.0); NEUTROPHILS # (AUTO) 7.3 K/uL (1.8-7.7); NEUTROPHILS % (AUTO) 65.6 % (40.0-70.0); PLATELET COUNT (AUTO) 192 K/uL (150-450); RED BLOOD CELL COUNT(AUTO) 4.77 MIL/uL (4.50-5.90); RED CELL DISTRIBUTION WIDTH 14.6 % (11.5-14.5)
[2017-09-22 07:23] LABS: ALANINE AMINOTRANSFERASE 48 U/L (12-78); ALBUMIN 2.7 g/dL (3.4-5.0); ALKALINE PHOSPHATASE 88 U/L (46-116); ANION GAP 9 mmol/L (8-16); ASPARTATE AMINOTRANSFERASE 58 U/L (15-37); BILIRUBIN,TOTAL 1.1 mg/dL (0.1-1.0); CALCIUM, TOTAL 8.4 mg/dL (8.8-10.5); CARBON DIOXIDE 25 mmol/L (22-29); CHLORIDE 104 mmol/L (98-107); CREATININE 1.17 mg/dL (0.60-1.30); GLOMERULAR FILTR. RATE CALC > 60 mL/min (>60); GLUCOSE,RANDOM 78 mg/dL (70-110); POTASSIUM 3.6 mmol/L (3.5-5.1); SODIUM SERUM 138 mmol/L (136-145); TOTAL PROTEIN, SERUM 6.8 g/dL (6.4-8.2); UREA NITROGEN, BLOOD 5 mg/dL (7-18)
[2017-09-22] MEDS: PANTOPRAZOLE SODIUM 40 MG/VIAL IVP SCH (08:54)
[2017-09-22] MEDS ORDERED: SODIUM CHLORIDE 0.9% 250 ML IV ONE (13:22)
[2017-09-22] MEDS: MAGNESIUM OXIDE 400 MG TABLET PO PRN ×2 (18:54→20:26)
[2017-09-22] MEDS ORDERED: MAGNESIUM SULFATE 2 GM in DEXTROSE 5%-WATER 50 ML IV PRN (19:00)
[2017-09-22] MEDS ORDERED: MAGNESIUM SULFATE 4 GM/WATER 100 ML IV PRN (19:00)
[2017-09-23] MEDS: MAGNESIUM OXIDE 400 MG TABLET PO PRN (00:18)
[2017-09-23] MEDS: PIPERACILLIN/TAZO 3.375 GM/D5W 50 ML IV SCH ×3 (00:19→13:00)
[2017-09-23 04:00] VITALS: BP 127/69
[2017-09-23] MEDS: HYDROCODONE/ACETAMINOPHEN 5-325 MG TABLET PO PRN ×2 (05:28→13:54)
[2017-09-23 07:54] LABS: ALBUMIN 2.5 g/dL (3.4-5.0); BILIRUBIN,TOTAL 0.9 mg/dL (0.1-1.0); CALCIUM, TOTAL 8.5 mg/dL (8.8-10.5); CREATININE 1.33 mg/dL (0.60-1.30); MAGNESIUM 1.7 mg/dL (1.80-2.40); POTASSIUM 3.5 mmol/L (3.5-5.1); TOTAL PROTEIN, SERUM 6.4 g/dL (6.4-8.2)
[2017-09-23] MEDS: OXYGEN THERAPY IH SCH (08:00)
[2017-09-23] MEDS: PANTOPRAZOLE SODIUM 40 MG/VIAL IVP SCH (08:09)
[2017-09-23 08:26] VITALS: BP 104/56
[2017-09-23 11:26] VITALS: BP 125/80
[2017-09-23] MEDS ORDERED: HYDR-309 PO (11:58)
== END 2017-09-23 15:15 | disposition home or self-care (01) | DRG 417 ==
LOC: EMS 23:46 → 6N 09-18 03:24
PROVIDERS: ADMIT Family Medicine; ATTEND Family Medicine
PROC: 0FT44ZZ Resection of Gallbladder, Percutaneous Endoscopic Approach (ICD-10-PCS; principal; 2017-09-20 11:45)
DX: K80.13 Calculus of gallbladder with acute and chronic cholecystitis with obstruction (principal); N17.0 Acute kidney failure with tubular necrosis; N32.0 Bladder-neck obstruction; J44.9 Chronic obstructive pulmonary disease, unspecified; E86.0 Dehydration; G89.4 Chronic pain syndrome; I12.9 Hypertensive chronic kidney disease with stage 1 through stage 4 chronic kidney disease, or unspecified chronic kidney disease; N18.9 Chronic kidney disease, unspecified; Z79.899 Other long term (current) drug therapy; Z86.711 Personal history of pulmonary embolism; Z87.891 Personal history of nicotine dependence
CPT/HCPCS: 74176; 76700; 83735; 87081; 88304; 93005; 94640; 96374; 96375; 99285; C9113; J0690; J1170; J2270; J2405; J2543; J2704; J2765; J3010; J3475; J3490; J3535; J7030; J7050; J7060; J7120

== ENCOUNTER 2018-02-18 22:17 | Emergency (ER) | payer MEDICARE, OTHER ==
[~2018-02-18] VITALS: Ht 167.6 cm; Wt 58.2 kg
[~2018-02-18 22:17] MED LIST changes: +HYDR-309 PO
[2018-02-18] MEDS ORDERED: BUPIVACAINE HCL/PF 0.25% 10 ML VIAL INJ ONE (23:30)
[2018-02-18] MEDS ORDERED: PENICILLIN V POTASSIUM 500 MG TABLET PO ONE (23:30)
[2018-02-18] MEDS ORDERED: LIDOCAINE 1% 10 ML VIAL INJ ONE (23:30)
[2018-02-19 00:15] VITALS: BP 118/67
== END 2018-02-19 00:20 | disposition home or self-care (01) ==
LOC: EMS 22:19
DX: K08.89 Other specified disorders of teeth and supporting structures (principal); J44.9 Chronic obstructive pulmonary disease, unspecified; I10 Essential (primary) hypertension; N28.9 Disorder of kidney and ureter, unspecified; Z90.89 Acquired absence of other organs; Z86.711 Personal history of pulmonary embolism; Z87.891 Personal history of nicotine dependence; Z79.891 Long term (current) use of opiate analgesic; Z79.899 Other long term (current) drug therapy
CPT/HCPCS: 64400; 99284; J3490 ×2

== ENCOUNTER 2018-06-03 14:45 | Emergency (ER) | payer OTHER ==
[~2018-06-03] VITALS: Ht 167.6 cm; Wt 54.5 kg
[2018-06-03] MEDS ORDERED: MONT10TA21 PO (15:28)
[2018-06-03] MEDS ORDERED: OMEP20 PO (15:28)
[2018-06-03] MEDS ORDERED: LEVO500 PO (15:28)
[2018-06-03] MEDS ORDERED: ACETAMINOPHEN 325 MG TABLET PO ONE (18:00)
[2018-06-03] MEDS ORDERED: SODIUM CHLORIDE 0.9% 1,000 ML IV ONE (18:00)
[2018-06-03 18:16] LABS: BASOPHILS % (AUTO) 0.1 % (0.0-2.0); EOSINOPHILS % (AUTO) 0 % (1.0-6.0); HEMATOCRIT 46.9 % (41-53); HEMOGLOBIN 15.2 g/dL (13.5-17.5); LYMPHOCYTES # (AUTO) 0.6 K/uL (1.0-4.8); LYMPHOCYTES % (AUTO) 7.2 % (22.0-44.0); MEAN CORPUSCULAR HEMOGLOBIN 27.1 pg (26.0-34.0); MEAN CORPUSCULAR HGB CONC 32.3 G/dL (31.0-37.0); MEAN CORPUSCULAR VOLUME 84 fL (80-100); MONOCYTES # (AUTO) 0.5 K/uL (0.1-1.0); MONOCYTES % (AUTO) 5.2 % (2.0-9.0); NEUTROPHILS # (AUTO) 7.7 K/uL (1.8-7.7); PLATELET COUNT (AUTO) 245 K/uL (150-450); RED BLOOD CELL COUNT(AUTO) 5.58 MIL/uL (4.50-5.90); RED CELL DISTRIBUTION WIDTH 13.1 % (11.5-14.5)
[2018-06-03 18:18] LABS: NEUTROPHILS % (AUTO) 87.5 % (40.0-70.0)
[2018-06-03 18:31] LABS: PLATELET MORPHOLOGY COMMENT GIANT PLTS PRESENT
[2018-06-03 18:32] LABS: CALCIUM, TOTAL 9.6 mg/dL (8.8-10.5); CREATININE 2.76 mg/dL (0.60-1.30); POTASSIUM 4.5 mmol/L (3.5-5.1)
[2018-06-03 18:38] LABS: BILIRUBIN,TOTAL 0.4 mg/dL (0.1-1.0); TOTAL PROTEIN, SERUM 7.6 g/dL (6.4-8.2)
[2018-06-03 20:51] VITALS: BP 130/72
== END 2018-06-03 21:14 | disposition home or self-care (01) ==
LOC: EMS 14:46
DX: R53.1 Weakness (principal); R42 Dizziness and giddiness; I10 Essential (primary) hypertension; J44.9 Chronic obstructive pulmonary disease, unspecified; Z87.891 Personal history of nicotine dependence; Z79.899 Other long term (current) drug therapy
CPT/HCPCS: 36415; 71045; 80053; 84484; 85025; 93005; 96360; 99285; J7030

== ENCOUNTER 2018-08-15 00:15 | Emergency (ER) | payer OTHER ==
[~2018-08-15] VITALS: Ht 167.6 cm; Wt 56.8 kg
[~2018-08-15 00:15] MED LIST changes: -GABA300C PO; -HYDR-309 PO; +LEVO500 PO; +MONT10TA21 PO; +OMEP20 PO
[2018-08-15] MEDS ORDERED: GABA-529 PO (00:41)
[2018-08-15] MEDS ORDERED: LIDOCAINE 1% 10 ML VIAL INJ ONE (02:45)
[2018-08-15 03:50] VITALS: BP 168/83
== END 2018-08-15 04:03 | disposition home or self-care (01) ==
LOC: EMS 00:15
DX: R51 Headache (principal); J45.909 Unspecified asthma, uncomplicated; I10 Essential (primary) hypertension; G89.29 Other chronic pain; Z87.891 Personal history of nicotine dependence; Z79.899 Other long term (current) drug therapy
CPT/HCPCS: 20550; 99284; J3490

== ENCOUNTER 2018-08-21 01:30 | Emergency (ER) | payer OTHER ==
[~2018-08-21] VITALS: Ht 167.6 cm; Wt 54.5 kg
[~2018-08-21 01:30] MED LIST changes: +GABA-529 PO; -LEVO500 PO; -MONT10TA21 PO; -PRED10 PO
[2018-08-21 02:07] LABS: BASOPHILS % (AUTO) 0.9 % (0.0-2.0); EOSINOPHILS % (AUTO) 3.5 % (1.0-6.0); HEMATOCRIT 37.9 % (41-53); HEMOGLOBIN 11.9 g/dL (13.5-17.5); LYMPHOCYTES # (AUTO) 1.2 K/uL (1.0-4.8); LYMPHOCYTES % (AUTO) 21.4 % (22.0-44.0); MEAN CORPUSCULAR HEMOGLOBIN 26.7 pg (26.0-34.0); MEAN CORPUSCULAR HGB CONC 31.3 G/dL (31.0-37.0); MEAN CORPUSCULAR VOLUME 85 fL (80-100); MONOCYTES # (AUTO) 0.8 K/uL (0.1-1.0); MONOCYTES % (AUTO) 13.4 % (2.0-9.0); NEUTROPHILS # (AUTO) 3.5 K/uL (1.8-7.7); NEUTROPHILS % (AUTO) 60.8 % (40.0-70.0); PLATELET COUNT (AUTO) 162 K/uL (150-450); RED BLOOD CELL COUNT(AUTO) 4.44 MIL/uL (4.50-5.90)
[2018-08-21 02:09] LABS: APPEARANCE,URINE CLEAR (CLEAR); BILIRUBIN,URINE NEGATIVE (NEGATIVE); GLUCOSE, URINE (UA) NEGATIVE (NEGATIVE); KETONES,URINE NEGATIVE (NEGATIVE); LEUKOCYTE ESTERASE ,URINE NEGATIVE (NEGATIVE); NITRATE,URINE NEGATIVE (NEGATIVE); OCCULT BLOOD,URINE NEGATIVE (NEGATIVE); PH,URINE 6.5 (5.0-8.0); PROTEIN,URINE NEGATIVE (NEGATIVE); UROBILINOGEN,URINE 0.2 mg/dL (<=1.0)
[2018-08-21 02:16] LABS: CALCIUM, TOTAL 9.1 mg/dL (8.8-10.5); CREATININE 2.14 mg/dL (0.60-1.30); POTASSIUM 3.7 mmol/L (3.5-5.1)
[2018-08-21 02:40] LABS: ALBUMIN 3.9 g/dL (3.4-5.0); BILIRUBIN,TOTAL 0.4 mg/dL (0.1-1.0); TOTAL PROTEIN, SERUM 6.6 g/dL (6.4-8.2)
[2018-08-21 05:40] VITALS: BP 139/68
== END 2018-08-21 06:21 | disposition home or self-care (01) ==
LOC: EMS 01:33
DX: I12.9 Hypertensive chronic kidney disease with stage 1 through stage 4 chronic kidney disease, or unspecified chronic kidney disease (principal); N18.9 Chronic kidney disease, unspecified; G89.29 Other chronic pain; J45.909 Unspecified asthma, uncomplicated; Z87.891 Personal history of nicotine dependence
CPT/HCPCS: 85379; 93005

== ENCOUNTER 2018-11-26 15:56 | Emergency (ER) | payer OTHER ==
[~2018-11-26] VITALS: Ht 167.6 cm; Wt 54.5 kg
[~2018-11-26 15:56] MED LIST changes: -AMLO-512 PO; +AMLO10TA7 PO
[2018-11-26] MEDS ORDERED: LACT30L PO (16:16)
[2018-11-26] MEDS ORDERED: LORazepam 2 MG/ML VIAL IVP ONE (16:45)
[2018-11-26] MEDS ORDERED: ALBUTEROL SULFATE 2.5 MG/0.5 ML NEB SOLUTION NEB ONE (16:45)
[2018-11-26] MEDS ORDERED: ASPIRIN 325 MG TABLET PO ONE (16:45)
[2018-11-26] MEDS ORDERED: IPRATROPIUM BROMIDE 0.5 MG/2.5 ML NEB SOLUTION NEB ONE (16:45)
[2018-11-26] MEDS ORDERED: ACETAMINOPHEN 500 MG TABLET PO ONE (16:45)
[2018-11-26] MEDS ORDERED: MethylPREDNISolone SOD SUCC 125 MG/2 ML VIAL IVP ONE (16:45)
[2018-11-26 18:09] LABS: BASOPHILS % (AUTO) 0.8 % (0.0-2.0); EOSINOPHILS % (AUTO) 2.1 % (1.0-6.0); HEMATOCRIT 35.9 % (41-53); HEMOGLOBIN 11.4 g/dL (13.5-17.5); LYMPHOCYTES % (AUTO) 21.1 % (22.0-44.0); MEAN CORPUSCULAR HEMOGLOBIN 27.1 pg (26.0-34.0); MEAN CORPUSCULAR HGB CONC 31.8 G/dL (31.0-37.0); MEAN CORPUSCULAR VOLUME 85 fL (80-100); MONOCYTES # (AUTO) 0.6 K/uL (0.1-1.0); MONOCYTES % (AUTO) 12.4 % (2.0-9.0); NEUTROPHILS # (AUTO) 2.9 K/uL (1.8-7.7); NEUTROPHILS % (AUTO) 63.6 % (40.0-70.0); PLATELET COUNT (AUTO) 204 K/uL (150-450); RED BLOOD CELL COUNT(AUTO) 4.21 MIL/uL (4.50-5.90); RED CELL DISTRIBUTION WIDTH 14.7 % (11.5-14.5)
[2018-11-26 18:14] LABS: LACTIC ACID 4.8 mmol/L (0.4-2.0)
[2018-11-26 18:19] LABS: ANION GAP 11 mmol/L (8-16); CALCIUM, TOTAL 9.7 mg/dL (8.8-10.5); CARBON DIOXIDE 27 mmol/L (22-29); CHLORIDE 101 mmol/L (98-107); CREATININE 1.72 mg/dL (0.60-1.30); GLOMERULAR FILTR. RATE CALC 39 mL/min (>60); GLUCOSE,RANDOM 96 mg/dL (70-110); SODIUM SERUM 139 mmol/L (136-145); UREA NITROGEN, BLOOD 12 mg/dL (7-18)
[2018-11-26 18:22] LABS: ALANINE AMINOTRANSFERASE 25 U/L (12-78); ALKALINE PHOSPHATASE 81 U/L (46-116); ASPARTATE AMINOTRANSFERASE 26 U/L (15-37); BILIRUBIN,TOTAL 0.8 mg/dL (0.1-1.0); LIPASE 103 U/L (73-393); TOTAL PROTEIN, SERUM 7.2 g/dL (6.4-8.2)
[2018-11-26 18:24] LABS: B-TYPE NATRIURETIC PEPTIDE 14 pg/mL (0-100)
[2018-11-26 19:34] VITALS: BP 110/58
== END 2018-11-26 20:19 | disposition home or self-care (01) ==
LOC: EMS 15:58
DX: I12.9 Hypertensive chronic kidney disease with stage 1 through stage 4 chronic kidney disease, or unspecified chronic kidney disease (principal); F41.9 Anxiety disorder, unspecified; N18.9 Chronic kidney disease, unspecified; Z87.891 Personal history of nicotine dependence; Z79.899 Other long term (current) drug therapy
CPT/HCPCS: 36415; 71045; 80053; 81002; 83605; 83690; 83880; 84484; 85025; 87040; 93005; 94640; 96374; 96375; 99285; G0480; J2060; J2930

== ENCOUNTER 2020-09-23 18:22 | Emergency (ER) | payer MEDICARE, OTHER ==
[~2020-09-23] VITALS: Ht 167.6 cm; Wt 59.1 kg
[~2020-09-23 18:22] MED LIST changes: -ALBU8.5H8 IH; +AMLO-258 PO; -AMLO10TA7 PO; +ATOR20TA86 PO; +CHOL500013 PO; +CLOP75TA60 PO; +GABA-1216 PO; -GABA-529 PO; -LISI1TAB11 PO; +PRED10 PO
[2020-09-23 20:40] VITALS: BP 133/70
== END 2020-09-23 20:40 | disposition home or self-care (01) ==
LOC: EMS 18:25
DX: G62.9 Polyneuropathy, unspecified (principal); M25.511 Pain in right shoulder; M25.512 Pain in left shoulder; M54.2 Cervicalgia; J45.909 Unspecified asthma, uncomplicated; I10 Essential (primary) hypertension; Z87.891 Personal history of nicotine dependence
CPT/HCPCS: 99283

== ENCOUNTER 2020-10-01 11:16 | Emergency (ER) | payer MEDICARE, OTHER ==
[~2020-10-01] VITALS: Ht 165.1 cm; Wt 59.1 kg
[~2020-10-01 11:16] MED LIST changes: -PRED10 PO
[2020-10-01 14:12] LABS: BASOPHILS % (AUTO) 0.8 % (0.0-2.0); EOSINOPHILS % (AUTO) 3.9 % (1.0-6.0); HEMATOCRIT 37.2 % (41-53); HEMOGLOBIN 11.8 g/dL (13.5-17.5); LYMPHOCYTES # (AUTO) 2.4 K/uL (1.0-4.8); LYMPHOCYTES % (AUTO) 31.2 % (22.0-44.0); MEAN CORPUSCULAR HEMOGLOBIN 27.1 pg (26.0-34.0); MEAN CORPUSCULAR HGB CONC 31.8 G/dL (31.0-37.0); MEAN CORPUSCULAR VOLUME 85 fL (80-100); MONOCYTES # (AUTO) 1.3 K/uL (0.1-1.0); MONOCYTES % (AUTO) 17.2 % (2.0-9.0); NEUTROPHILS # (AUTO) 3.7 K/uL (1.8-7.7); NEUTROPHILS % (AUTO) 46.9 % (40.0-70.0); PLATELET COUNT (AUTO) 230 K/uL (150-450); RED BLOOD CELL COUNT(AUTO) 4.36 MIL/uL (4.50-5.90); RED CELL DISTRIBUTION WIDTH 13.3 % (11.5-14.5)
[2020-10-01 14:21] LABS: CALCIUM, TOTAL 9.9 mg/dL (8.8-10.5); CREATININE 1.81 mg/dL (0.60-1.30)
[2020-10-01 14:26] LABS: ALBUMIN 3.8 g/dL (3.4-5.0); BILIRUBIN,TOTAL 0.6 mg/dL (0.1-1.0); TOTAL PROTEIN, SERUM 6.6 g/dL (6.4-8.2)
[2020-10-01] MEDS ORDERED: LIDOCAINE 5% TRANSDERMAL PATCH TD ONE (15:00)
[2020-10-01] MEDS ORDERED: ACETAMINOPHEN 325 MG TABLET PO ONE (15:00)
[2020-10-01 16:01] VITALS: BP 132/68
== END 2020-10-01 16:03 | disposition home or self-care (01) ==
LOC: EMS 11:30
DX: M54.2 Cervicalgia (principal); G62.9 Polyneuropathy, unspecified; M25.511 Pain in right shoulder; M25.512 Pain in left shoulder; J45.909 Unspecified asthma, uncomplicated; I10 Essential (primary) hypertension; Z87.891 Personal history of nicotine dependence
CPT/HCPCS: 71045; 80053; 84484; 85025; 93005; 99285; 36415-L1; 36415-TC

== ENCOUNTER 2021-06-29 00:50 | Emergency (ER) | payer MEDICARE, OTHER ==
[~2021-06-29] VITALS: Ht 167.6 cm; Wt 62.7 kg
[2021-06-29] MEDS ORDERED: BISMUTH SUBSALICYLATE 524 MG/30 ML SUSPENSION UDCUP PO ONE (01:15)
[2021-06-29] MEDS ORDERED: SODIUM CHLORIDE 0.9% 1,000 ML IV ONE (01:15)
[2021-06-29 01:37] LABS: COVID AG,FIA SOURCE NASAL SWAB
[2021-06-29 01:39] LABS: BASOPHILS % (AUTO) 0.6 % (0.0-2.0); EOSINOPHILS % (AUTO) 3.5 % (1.0-6.0); HEMATOCRIT 36.4 % (41-53); HEMOGLOBIN 11.8 g/dL (13.5-17.5); LYMPHOCYTES # (AUTO) 1.3 K/uL (1.0-4.8); LYMPHOCYTES % (AUTO) 14.6 % (22.0-44.0); MEAN CORPUSCULAR HEMOGLOBIN 28.1 pg (26.0-34.0); MEAN CORPUSCULAR HGB CONC 32.5 G/dL (31.0-37.0); MEAN CORPUSCULAR VOLUME 87 fL (80-100); MONOCYTES # (AUTO) 1.4 K/uL (0.1-1.0); MONOCYTES % (AUTO) 15.5 % (2.0-9.0); NEUTROPHILS # (AUTO) 5.9 K/uL (1.8-7.7); NEUTROPHILS % (AUTO) 65.8 % (40.0-70.0); PLATELET COUNT (AUTO) 183 K/uL (150-450); RED BLOOD CELL COUNT(AUTO) 4.21 MIL/uL (4.50-5.90); RED CELL DISTRIBUTION WIDTH 14.6 % (11.5-14.5)
[2021-06-29 01:48] LABS: CALCIUM, TOTAL 8.6 mg/dL (8.8-10.5); CREATININE 1.83 mg/dL (0.60-1.30); POTASSIUM 4.6 mmol/L (3.5-5.1)
[2021-06-29 01:53] LABS: ALBUMIN 3.2 g/dL (3.4-5.0); BILIRUBIN,TOTAL 0.3 mg/dL (0.1-1.0); TOTAL PROTEIN, SERUM 6.5 g/dL (6.4-8.2)
[2021-06-29 01:56] LABS: INFLUENZA TYPE A NEGATIVE FOR TYPE A (NEGATIVE); INFLUENZA TYPE B NEGATIVE FOR TYPE B (NEGATIVE)
[2021-06-29 02:25] LABS: APPEARANCE,URINE CLEAR (CLEAR); BILIRUBIN,URINE NEGATIVE (NEGATIVE); GLUCOSE, URINE (UA) NEGATIVE (NEGATIVE); KETONES,URINE NEGATIVE (NEGATIVE); LEUKOCYTE ESTERASE ,URINE NEGATIVE (NEGATIVE); NITRATE,URINE NEGATIVE (NEGATIVE); OCCULT BLOOD,URINE NEGATIVE (NEGATIVE); PH,URINE 6.5 (5.0-8.0); PROTEIN,URINE NEGATIVE (NEGATIVE); UROBILINOGEN,URINE 0.2 mg/dL (<=1.0)
[2021-06-29 08:30] VITALS: BP 122/61
[2021-06-29] MEDS ORDERED: DIPHENOXYLATE/ATROP 2.5-0.025 MG TABLET PO ONE (09:15)
[2021-06-29] MEDS ORDERED: CIPROFLOXACIN HCL 250 MG TABLET PO ONE (09:15)
== END 2021-06-29 09:33 | disposition home or self-care (01) ==
LOC: EMS 00:52
DX: R19.7 Diarrhea, unspecified (principal); R10.84 Generalized abdominal pain; I10 Essential (primary) hypertension; J44.9 Chronic obstructive pulmonary disease, unspecified; Z79.899 Other long term (current) drug therapy; Z87.891 Personal history of nicotine dependence; Z20.822 Contact with and (suspected) exposure to COVID-19
CPT/HCPCS: 36415; 71250; 74176; 80053; 81003; 83690; 85025; 87426; 87804; 96360; 99285; J7030

== ENCOUNTER 2021-07-28 22:56 | Emergency (ER) | payer MEDICARE, OTHER ==
[~2021-07-28] VITALS: Ht 167.6 cm; Wt 61.7 kg
[2021-07-28 23:57] LABS: BASOPHILS % (AUTO) 0.1 % (0.0-2.0); EOSINOPHILS % (AUTO) 0.5 % (1.0-6.0); HEMATOCRIT 34.7 % (41-53); HEMOGLOBIN 11.1 g/dL (13.5-17.5); LYMPHOCYTES # (AUTO) 1.2 K/uL (1.0-4.8); LYMPHOCYTES % (AUTO) 7.7 % (22.0-44.0); MEAN CORPUSCULAR HEMOGLOBIN 27.9 pg (26.0-34.0); MEAN CORPUSCULAR HGB CONC 31.9 G/dL (31.0-37.0); MEAN CORPUSCULAR VOLUME 87 fL (80-100); MONOCYTES # (AUTO) 1.1 K/uL (0.1-1.0); MONOCYTES % (AUTO) 6.9 % (2.0-9.0); NEUTROPHILS # (AUTO) 13.1 K/uL (1.8-7.7); NEUTROPHILS % (AUTO) 84.8 % (40.0-70.0); PLATELET COUNT (AUTO) 233 K/uL (150-450); RED BLOOD CELL COUNT(AUTO) 3.97 MIL/uL (4.50-5.90); RED CELL DISTRIBUTION WIDTH 15.1 % (11.5-14.5)
[2021-07-29 00:06] LABS: CREATININE 2.35 mg/dL (0.60-1.30); POTASSIUM 5.2 mmol/L (3.5-5.1)
[2021-07-29 00:07] LABS: CALCIUM, TOTAL 8.4 mg/dL (8.8-10.5)
[2021-07-29 00:21] LABS: ALBUMIN 3.1 g/dL (3.4-5.0); BILIRUBIN,TOTAL 0.3 mg/dL (0.1-1.0); THYROID STIMULATING HORMONE 2.29 uIU/mL (0.36-3.74); TOTAL PROTEIN, SERUM 6.3 g/dL (6.4-8.2)
[2021-07-29 01:22] LABS: COVID AG,FIA SOURCE NASOPHARYNGEAL
[2021-07-29 03:30] VITALS: BP 139/74
[2021-07-29] MEDS ORDERED: FURO-152 PO (03:56)
[2021-07-29] MEDS ORDERED: FUROSEMIDE 20 MG TABLET PO ONE (04:00)
== END 2021-07-29 04:43 | disposition home or self-care (01) ==
LOC: EMS 23:20
DX: I12.9 Hypertensive chronic kidney disease with stage 1 through stage 4 chronic kidney disease, or unspecified chronic kidney disease (principal); N18.9 Chronic kidney disease, unspecified; R60.1 Generalized edema; J45.909 Unspecified asthma, uncomplicated; Z20.822 Contact with and (suspected) exposure to COVID-19; Z87.891 Personal history of nicotine dependence
CPT/HCPCS: 71045; 80053; 83880; 84443; 84484; 85025; 93005; 99285; 36415-L1; 36415-TC

== ENCOUNTER 2021-08-04 15:08 | Emergency (ER) | payer MEDICARE, OTHER ==
[~2021-08-04] VITALS: Ht 167.6 cm; Wt 63.6 kg
[~2021-08-04 15:08] MED LIST changes: +FURO-152 PO
[2021-08-04] MEDS ORDERED: ACETAMINOPHEN 500 MG TABLET PO ONE (17:00)
[2021-08-04 17:38] LABS: APPEARANCE,URINE CLEAR (CLEAR); BILIRUBIN,URINE NEGATIVE (NEGATIVE); GLUCOSE, URINE (UA) NEGATIVE (NEGATIVE); KETONES,URINE NEGATIVE (NEGATIVE); LEUKOCYTE ESTERASE ,URINE NEGATIVE (NEGATIVE); NITRATE,URINE NEGATIVE (NEGATIVE); OCCULT BLOOD,URINE NEGATIVE (NEGATIVE); PROTEIN,URINE NEGATIVE (NEGATIVE); SPECIFIC GRAVITIY, URINE 1.016 (1.003-1.030); UROBILINOGEN,URINE <=1.0 mg/dL (<=1.0)
[2021-08-04 17:46] LABS: BASOPHILS % (AUTO) 0.1 % (0.0-2.0); EOSINOPHILS % (AUTO) 0.1 % (1.0-6.0); HEMATOCRIT 48.7 % (41-53); HEMOGLOBIN 15.6 g/dL (13.5-17.5); LYMPHOCYTES # (AUTO) 0.7 K/uL (1.0-4.8); LYMPHOCYTES % (AUTO) 5.4 % (22.0-44.0); MEAN CORPUSCULAR HEMOGLOBIN 28.3 pg (26.0-34.0); MEAN CORPUSCULAR HGB CONC 31.9 G/dL (31.0-37.0); MEAN CORPUSCULAR VOLUME 89 fL (80-100); MONOCYTES # (AUTO) 0.6 K/uL (0.1-1.0); MONOCYTES % (AUTO) 5.1 % (2.0-9.0); NEUTROPHILS # (AUTO) 11.2 K/uL (1.8-7.7); PLATELET COUNT (AUTO) 288 K/uL (150-450); RED CELL DISTRIBUTION WIDTH 15.5 % (11.5-14.5)
[2021-08-04 17:50] LABS: NEUTROPHILS % (AUTO) 89.3 % (40.0-70.0)
[2021-08-04 18:02] LABS: PLATELET MORPHOLOGY COMMENT LARGE PLTS PRESENT
[2021-08-04 18:03] LABS: POTASSIUM 5.2 mmol/L (3.5-5.1)
[2021-08-04 18:27] LABS: ALBUMIN 4.8 g/dL (3.4-5.0); BILIRUBIN,TOTAL 0.8 mg/dL (0.1-1.0); TOTAL PROTEIN, SERUM 9.4 g/dL (6.4-8.2)
[2021-08-04] MEDS ORDERED: AZITHROMYCIN 500 MG TABLET PO ONE (19:45)
[2021-08-04] MEDS ORDERED: CefTRIAXone 1 GM/DEXTROSE 50 ML IV ONE (19:45)
[2021-08-04] MEDS ORDERED: AZIT-104 PO (19:58)
[2021-08-04] MEDS ORDERED: POLY119P3 PO (20:49)
[2021-08-04 21:45] VITALS: BP 148/78
== END 2021-08-04 21:48 | disposition home or self-care (01) ==
LOC: EMS 15:09
DX: J18.9 Pneumonia, unspecified organism (principal); I10 Essential (primary) hypertension; J44.9 Chronic obstructive pulmonary disease, unspecified; Z87.891 Personal history of nicotine dependence; Z79.899 Other long term (current) drug therapy
CPT/HCPCS: 36415; 71045; 74019; 80053; 81003; 82550; 83880; 84484; 85025; 85379; 93005; 96365; 99285; 99406; J0696; Q9967

== ENCOUNTER 2021-09-06 10:17 | Emergency (ER) | payer MEDICARE, OTHER ==
[~2021-09-06] VITALS: Ht 167.6 cm; Wt 64.0 kg
[~2021-09-06 10:17] MED LIST changes: +AZIT-104 PO; +POLY119P3 PO
[2021-09-06 12:22] LABS: EOSINOPHILS % (AUTO) 3.3 % (1.0-6.0); HEMATOCRIT 35.3 % (41-53); HEMOGLOBIN 11.5 g/dL (13.5-17.5); LYMPHOCYTES % (AUTO) 24.3 % (22.0-44.0); MEAN CORPUSCULAR HEMOGLOBIN 27.9 pg (26.0-34.0); MEAN CORPUSCULAR HGB CONC 32.5 G/dL (31.0-37.0); MEAN CORPUSCULAR VOLUME 86 fL (80-100); MONOCYTES % (AUTO) 12.1 % (2.0-9.0); NEUTROPHILS # (AUTO) 4.8 K/uL (1.8-7.7); NEUTROPHILS % (AUTO) 59.3 % (40.0-70.0); PLATELET COUNT (AUTO) 248 K/uL (150-450); RED BLOOD CELL COUNT(AUTO) 4.11 MIL/uL (4.50-5.90); RED CELL DISTRIBUTION WIDTH 14.1 % (11.5-14.5)
[2021-09-06 12:41] LABS: CALCIUM, TOTAL 9.7 mg/dL (8.8-10.5); CREATININE 1.7 mg/dL (0.60-1.30)
[2021-09-06 13:03] LABS: ALBUMIN 3.5 g/dL (3.4-5.0); BILIRUBIN,TOTAL 0.4 mg/dL (0.1-1.0); TOTAL PROTEIN, SERUM 6.9 g/dL (6.4-8.2)
[2021-09-06] MEDS ORDERED: PB/HYOSCY/ATR/SCOP/LIDO/MAALOX 55 ML BOTTLE PO ONE (14:30)
[2021-09-06] MEDS ORDERED: MORPHINE SULFATE 2 MG/ML SYRINGE IVP ONE (14:30)
[2021-09-06 14:37] VITALS: BP 133/67
[2021-09-07] MEDS ORDERED: CHOL25TA4 PO (18:04)
[2021-09-07] MEDS ORDERED: POLY510P31 PO (18:04)
== END 2021-09-06 15:19 | disposition home or self-care (01) ==
LOC: EMS 10:17
DX: R10.13 Epigastric pain (principal); J45.909 Unspecified asthma, uncomplicated; J44.9 Chronic obstructive pulmonary disease, unspecified; I10 Essential (primary) hypertension; Z87.09 Personal history of other diseases of the respiratory system; G89.29 Other chronic pain; Z98.890 Other specified postprocedural states
CPT/HCPCS: 36415; 74022; 74176; 80053; 82550; 83690; 83880; 84484; 85025; 93005; 96374; 99285; J2270

== ENCOUNTER 2021-09-07 17:46 | Inpatient (IN) | payer MEDICARE, OTHER ==
[~2021-09-07] VITALS: Ht 167.6 cm; Wt 63.3 kg
[2021-09-07] MEDS ORDERED: POLY510P31 PO (18:04)
[2021-09-07] MEDS ORDERED: CHOL25TA4 PO (18:04)
[2021-09-07] MEDS ORDERED: ONDANSETRON HCL 4 MG/2 ML VIAL IVP ONE (18:30)
[2021-09-07] MEDS ORDERED: SODIUM CHLORIDE 0.9% 1,000 ML IV ONE ×2 (18:30→21:15)
[2021-09-07 19:06] LABS: BASOPHILS % (AUTO) 0.6 % (0.0-2.0); EOSINOPHILS % (AUTO) 2.5 % (1.0-6.0); HEMATOCRIT 34.4 % (41-53); HEMOGLOBIN 10.9 g/dL (13.5-17.5); LYMPHOCYTES # (AUTO) 1.4 K/uL (1.0-4.8); LYMPHOCYTES % (AUTO) 22.3 % (22.0-44.0); MEAN CORPUSCULAR HEMOGLOBIN 27.2 pg (26.0-34.0); MEAN CORPUSCULAR HGB CONC 31.8 G/dL (31.0-37.0); MEAN CORPUSCULAR VOLUME 86 fL (80-100); MONOCYTES % (AUTO) 16.4 % (2.0-9.0); NEUTROPHILS # (AUTO) 3.5 K/uL (1.8-7.7); NEUTROPHILS % (AUTO) 58.2 % (40.0-70.0); PLATELET COUNT (AUTO) 221 K/uL (150-450); RED BLOOD CELL COUNT(AUTO) 4.02 MIL/uL (4.50-5.90)
[2021-09-07 19:15] LABS: ANION GAP 11 mmol/L (8-16); CALCIUM, TOTAL 9.7 mg/dL (8.8-10.5); CARBON DIOXIDE 30 mmol/L (22-29); CHLORIDE 100 mmol/L (98-107); CREATININE 1.96 mg/dL (0.60-1.30); GLOMERULAR FILTR. RATE CALC 33 mL/min (>60); GLUCOSE,RANDOM 102 mg/dL (70-110); POTASSIUM 3.8 mmol/L (3.5-5.1); SODIUM SERUM 141 mmol/L (136-145); UREA NITROGEN, BLOOD 18 mg/dL (7-18)
[2021-09-07 19:20] LABS: ALANINE AMINOTRANSFERASE 20 U/L (12-78); ALBUMIN 3.6 g/dL (3.4-5.0); ALKALINE PHOSPHATASE 48 U/L (46-116); ASPARTATE AMINOTRANSFERASE 23 U/L (15-37); BILIRUBIN,TOTAL 0.4 mg/dL (0.1-1.0); LIPASE 65 U/L (73-393); TOTAL PROTEIN, SERUM 6.8 g/dL (6.4-8.2)
[2021-09-07 19:26] LABS: LACTIC ACID 3.3 mmol/L (0.4-2.0)
[2021-09-07] MEDS ORDERED: BARIUM SULFATE 0.1% SUSPENSION 450 ML BOTTLE PO ONE (19:30)
[2021-09-07] MEDS ORDERED: ACETAMINOPHEN 325 MG TABLET PO PRN ×2 (21:15→23:00)
[2021-09-07] MEDS ORDERED: ONDANSETRON HCL 4 MG/2 ML VIAL IVP PRN ×2 (21:15→23:00)
[2021-09-07] MEDS ORDERED: IOHEXOL 350 MG/ML 100 ML VIAL ONE (21:30)
[2021-09-07] MEDS ORDERED: SODIUM CHLORIDE 0.9% 100 ML ONE (21:30)
[2021-09-07] MEDS ORDERED: MORPHINE SULFATE 2 MG/ML SYRINGE IVP PRN (23:00)
[2021-09-07] MEDS ORDERED: ACETYLCYSTEINE 20% 200 MG/ML 4 ML ORAL SOLUTION PO SCH (23:00)
[2021-09-07] MEDS ORDERED: SODIUM CHLORIDE 0.9% 1,000 ML IV SCH (23:00)
[2021-09-07] MEDS: ACETYLCYSTEINE 10% 100 MG/ML 30 ML ORAL SOLUTION PO SCH (23:30)
[2021-09-08] MEDS: HEPARIN SODIUM,PORCINE 5,000 UNITS/ML VIAL SQ SCH ×3 (00:45→17:13)
[2021-09-08] MEDS: ACETYLCYSTEINE 10% 100 MG/ML 30 ML ORAL SOLUTION PO SCH (01:02)
[2021-09-08 06:08] LABS: BASOPHILS % (AUTO) 0.9 % (0.0-2.0); EOSINOPHILS % (AUTO) 3.8 % (1.0-6.0); HEMATOCRIT 32.5 % (41-53); HEMOGLOBIN 10.5 g/dL (13.5-17.5); LYMPHOCYTES # (AUTO) 1.9 K/uL (1.0-4.8); LYMPHOCYTES % (AUTO) 28.3 % (22.0-44.0); MEAN CORPUSCULAR HEMOGLOBIN 27.7 pg (26.0-34.0); MEAN CORPUSCULAR HGB CONC 32.4 G/dL (31.0-37.0); MEAN CORPUSCULAR VOLUME 86 fL (80-100); MONOCYTES # (AUTO) 1.1 K/uL (0.1-1.0); NEUTROPHILS # (AUTO) 3.3 K/uL (1.8-7.7); PLATELET COUNT (AUTO) 230 K/uL (150-450); RED CELL DISTRIBUTION WIDTH 14.1 % (11.5-14.5)
[2021-09-08 06:27] LABS: CALCIUM, TOTAL 8.7 mg/dL (8.8-10.5); CREATININE 1.87 mg/dL (0.60-1.30); MAGNESIUM 1.8 mg/dL (1.80-2.40); POTASSIUM 4.1 mmol/L (3.5-5.1)
[2021-09-08] MEDS ORDERED: OMEPRAZOLE 20 MG CAPSULE PO SCH (09:00)
[2021-09-08 09:40] LABS: COVID AG,FIA SOURCE NASOPHARYNGEAL
[2021-09-08 09:53] VITALS: BP 146/77
[2021-09-08] MEDS: PANTOPRAZOLE SODIUM 40 MG DR TABLET PO SCH (10:44)
[2021-09-08] MEDS: CLOPIDOGREL BISULFATE 75 MG TABLET PO SCH (10:44)
[2021-09-08] MEDS: CHOLECALCIFEROL (VIT D3) 1,000 UNITS [25 MCG] TABLET PO SCH (10:45)
[2021-09-08] MEDS: AmLODIPine BESYLATE 10 MG TABLET PO SCH (10:45)
[2021-09-08] MEDS: GABAPENTIN 100 MG CAPSULE PO SCH ×2 (10:45→20:30)
[2021-09-08 11:41] VITALS: BP 120/77
[2021-09-08] MEDS: DEXTROSE 5%-0.45% SODIUM CHL 1,000 ML IV SCH (14:00)
[2021-09-08 15:28] VITALS: BP 127/61
[2021-09-08 19:29] VITALS: BP 109/56
[2021-09-08] MEDS: ATORVASTATIN CALCIUM 20 MG TABLET PO SCH (20:30)
[2021-09-08 23:34] VITALS: BP 100/56
[2021-09-09] MEDS: HEPARIN SODIUM,PORCINE 5,000 UNITS/ML VIAL SQ SCH ×3 (00:12→16:41)
[2021-09-09] MEDS: ACETYLCYSTEINE 10% 100 MG/ML 30 ML ORAL SOLUTION PO SCH (00:12)
[2021-09-09 03:43] VITALS: BP 107/53
[2021-09-09] MEDS: DEXTROSE 5%-0.45% SODIUM CHL 1,000 ML IV SCH ×2 (06:37→23:00)
[2021-09-09 07:35] VITALS: BP 100/54
[2021-09-09] MEDS: AmLODIPine BESYLATE 10 MG TABLET PO SCH (09:00)
[2021-09-09] MEDS: CHOLECALCIFEROL (VIT D3) 1,000 UNITS [25 MCG] TABLET PO SCH (11:23)
[2021-09-09] MEDS: PANTOPRAZOLE SODIUM 40 MG DR TABLET PO SCH (11:23)
[2021-09-09] MEDS: CLOPIDOGREL BISULFATE 75 MG TABLET PO SCH (11:24)
[2021-09-09] MEDS: GABAPENTIN 100 MG CAPSULE PO SCH ×2 (11:28→20:28)
[2021-09-09 11:55] VITALS: BP 110/63
[2021-09-09 15:24] VITALS: BP 130/60
[2021-09-09] MEDS: METOCLOPRAMIDE HCL 5 MG TABLET PO SCH (18:02)
[2021-09-09] MEDS: ALBUTEROL SULFATE 2.5 MG/0.5 ML NEB SOLUTION NEB PRN ×2 (19:15→23:23)
[2021-09-09] MEDS: IPRATROPIUM BROMIDE 0.5 MG/2.5 ML NEB SOLUTION NEB PRN ×2 (19:15→23:23)
[2021-09-09 19:25] VITALS: BP 111/61
[2021-09-09] MEDS: ATORVASTATIN CALCIUM 20 MG TABLET PO SCH (20:28)
[2021-09-09 23:45] VITALS: BP 105/58
[2021-09-10] MEDS: HEPARIN SODIUM,PORCINE 5,000 UNITS/ML VIAL SQ SCH ×3 (00:19→16:19)
[2021-09-10 05:26] VITALS: BP 113/58
[2021-09-10] MEDS: METOCLOPRAMIDE HCL 5 MG TABLET PO SCH ×2 (05:51→16:19)
[2021-09-10] MEDS: BENZONATATE 100 MG CAPSULE PO PRN ×3 (05:51→20:38)
[2021-09-10 06:34] LABS: BASOPHILS % (AUTO) 0.9 % (0.0-2.0); EOSINOPHILS % (AUTO) 5.7 % (1.0-6.0); HEMATOCRIT 29.3 % (41-53); HEMOGLOBIN 9.8 g/dL (13.5-17.5); LYMPHOCYTES # (AUTO) 1.1 K/uL (1.0-4.8); LYMPHOCYTES % (AUTO) 26.4 % (22.0-44.0); MEAN CORPUSCULAR HEMOGLOBIN 28.4 pg (26.0-34.0); MEAN CORPUSCULAR HGB CONC 33.4 G/dL (31.0-37.0); MEAN CORPUSCULAR VOLUME 85 fL (80-100); MONOCYTES # (AUTO) 0.8 K/uL (0.1-1.0); MONOCYTES % (AUTO) 19.5 % (2.0-9.0); NEUTROPHILS # (AUTO) 1.9 K/uL (1.8-7.7); NEUTROPHILS % (AUTO) 47.5 % (40.0-70.0); PLATELET COUNT (AUTO) 210 K/uL (150-450); RED BLOOD CELL COUNT(AUTO) 3.44 MIL/uL (4.50-5.90); RED CELL DISTRIBUTION WIDTH 13.8 % (11.5-14.5)
[2021-09-10 06:47] LABS: CALCIUM, TOTAL 8.6 mg/dL (8.8-10.5); CREATININE 1.5 mg/dL (0.60-1.30); POTASSIUM 3.4 mmol/L (3.5-5.1)
[2021-09-10] MEDS: ALBUTEROL SULFATE 2.5 MG/0.5 ML NEB SOLUTION NEB PRN ×3 (07:29→15:31)
[2021-09-10] MEDS: IPRATROPIUM BROMIDE 0.5 MG/2.5 ML NEB SOLUTION NEB PRN ×3 (07:29→15:31)
[2021-09-10 07:51] VITALS: BP 136/66
[2021-09-10] MEDS: PANTOPRAZOLE SODIUM 40 MG DR TABLET PO SCH (08:38)
[2021-09-10] MEDS: CHOLECALCIFEROL (VIT D3) 1,000 UNITS [25 MCG] TABLET PO SCH (08:38)
[2021-09-10] MEDS: AmLODIPine BESYLATE 10 MG TABLET PO SCH (08:38)
[2021-09-10] MEDS: CLOPIDOGREL BISULFATE 75 MG TABLET PO SCH (08:38)
[2021-09-10] MEDS: GABAPENTIN 100 MG CAPSULE PO SCH ×2 (08:38→20:39)
[2021-09-10 11:08] VITALS: BP 103/59
[2021-09-10] MEDS ORDERED: POTASSIUM CHLORIDE 10% 40 MEQ/30 ML LIQUID UDCUP PO ONE (12:30)
[2021-09-10 15:35] VITALS: BP 108/62
[2021-09-10] MEDS: GuaiFENesin/D-METHORPHAN [SUGAR-FREE] 200-20MG/10 ML SYRUP UDCUP PO PRN (16:18)
[2021-09-10] MEDS: DEXTROSE 5%-0.45% SODIUM CHL 1,000 ML IV SCH (18:36)
[2021-09-10] MEDS: ATORVASTATIN CALCIUM 20 MG TABLET PO SCH (20:39)
[2021-09-10 20:41] VITALS: BP 105/57
[2021-09-11] MEDS: HEPARIN SODIUM,PORCINE 5,000 UNITS/ML VIAL SQ SCH ×2 (00:34→08:34)
[2021-09-11 00:39] VITALS: BP 102/57
[2021-09-11] MEDS: GuaiFENesin/D-METHORPHAN [SUGAR-FREE] 200-20MG/10 ML SYRUP UDCUP PO PRN (03:46)
[2021-09-11 04:38] VITALS: BP 109/64
[2021-09-11] MEDS: METOCLOPRAMIDE HCL 5 MG TABLET PO SCH (05:58)
[2021-09-11 07:23] VITALS: BP 107/61
[2021-09-11] MEDS: CHOLECALCIFEROL (VIT D3) 1,000 UNITS [25 MCG] TABLET PO SCH (08:33)
[2021-09-11] MEDS: CLOPIDOGREL BISULFATE 75 MG TABLET PO SCH (08:33)
[2021-09-11] MEDS: PANTOPRAZOLE SODIUM 40 MG DR TABLET PO SCH (08:33)
[2021-09-11] MEDS: GABAPENTIN 100 MG CAPSULE PO SCH (08:33)
[2021-09-11] MEDS: DEXTROSE 5%-0.45% SODIUM CHL 1,000 ML IV SCH (08:34)
[2021-09-11] MEDS: AmLODIPine BESYLATE 10 MG TABLET PO SCH (08:42)
[2021-09-11] MEDS: ALBUTEROL SULFATE 2.5 MG/0.5 ML NEB SOLUTION NEB PRN (09:55)
[2021-09-11] MEDS: IPRATROPIUM BROMIDE 0.5 MG/2.5 ML NEB SOLUTION NEB PRN (09:55)
[2021-09-11 10:45] VITALS: BP 114/58
[2021-09-11] MEDS ORDERED: GUAIFDM PO (12:46)
[2021-09-11] MEDS ORDERED: METO5TAB2 PO (12:46)
[2021-09-11 13:33] LABS: CALCIUM, TOTAL 8.8 mg/dL (8.8-10.5); CREATININE 1.37 mg/dL (0.60-1.30)
[2021-09-11 14:44] VITALS: BP 137/73
== END 2021-09-11 15:30 | disposition home or self-care (01) | DRG 683 ==
LOC: EMS 17:46 → 5N 09-08 07:02
PROVIDERS: ADMIT Internal Medicine; ATTEND Internal Medicine
DX: N17.9 Acute kidney failure, unspecified (principal); E87.2 Acidosis; K31.84 Gastroparesis; E86.0 Dehydration; N18.30 Chronic kidney disease, stage 3 unspecified; I12.9 Hypertensive chronic kidney disease with stage 1 through stage 4 chronic kidney disease, or unspecified chronic kidney disease; J44.9 Chronic obstructive pulmonary disease, unspecified; G89.29 Other chronic pain; Z20.822 Contact with and (suspected) exposure to COVID-19; Z79.899 Other long term (current) drug therapy; Z87.891 Personal history of nicotine dependence; Z79.02 Long term (current) use of antithrombotics/antiplatelets
CPT/HCPCS: 71045; 74177; 74250; 80048; 80053; 83605; 83690; 83735; 84484; 85025; 93005; 94640; 97116; 97161; 97530; 99285; J1644; J2270; J2405; J7030; J7050; Q9967; 36415-L1; 36415-TC; J7613

== ENCOUNTER 2021-09-28 18:38 | Emergency (ER) | payer MEDICARE, OTHER ==
[~2021-09-28] VITALS: Ht 167.6 cm; Wt 58.2 kg
[~2021-09-28 18:38] MED LIST changes: -AZIT-104 PO; +CHOL25TA4 PO; -CHOL500013 PO; -FURO-152 PO; +GUAIFDM PO; +METO5TAB2 PO; -POLY119P3 PO; +POLY510P31 PO
[2021-09-28 19:30] LABS: BASOPHILS % (AUTO) 0.9 % (0.0-2.0); EOSINOPHILS % (AUTO) 3.4 % (1.0-6.0); HEMATOCRIT 34.7 % (41-53); HEMOGLOBIN 11.3 g/dL (13.5-17.5); LYMPHOCYTES # (AUTO) 1.6 K/uL (1.0-4.8); LYMPHOCYTES % (AUTO) 22.1 % (22.0-44.0); MEAN CORPUSCULAR HEMOGLOBIN 27.2 pg (26.0-34.0); MEAN CORPUSCULAR HGB CONC 32.5 G/dL (31.0-37.0); MEAN CORPUSCULAR VOLUME 84 fL (80-100); MONOCYTES # (AUTO) 1.1 K/uL (0.1-1.0); MONOCYTES % (AUTO) 15.3 % (2.0-9.0); NEUTROPHILS # (AUTO) 4.1 K/uL (1.8-7.7); NEUTROPHILS % (AUTO) 58.3 % (40.0-70.0); PLATELET COUNT (AUTO) 282 K/uL (150-450); RED BLOOD CELL COUNT(AUTO) 4.15 MIL/uL (4.50-5.90)
[2021-09-28 19:42] LABS: CALCIUM, TOTAL 9.8 mg/dL (8.8-10.5); CREATININE 1.86 mg/dL (0.60-1.30); POTASSIUM 3.8 mmol/L (3.5-5.1)
[2021-09-28 20:05] LABS: ALBUMIN 3.9 g/dL (3.4-5.0); BILIRUBIN,TOTAL 0.5 mg/dL (0.1-1.0); TOTAL PROTEIN, SERUM 7.1 g/dL (6.4-8.2)
[2021-09-28] MEDS ORDERED: ONDANSETRON HCL 4 MG TABLET PO ONE (20:45)
[2021-09-28 21:15] VITALS: BP 129/67
[2021-09-28] MEDS ORDERED: ONDA-104 PO (21:18)
== END 2021-09-28 21:50 | disposition home or self-care (01) ==
LOC: EMS 18:38
DX: R53.83 Other fatigue (principal); F17.210 Nicotine dependence, cigarettes, uncomplicated; J44.9 Chronic obstructive pulmonary disease, unspecified; I10 Essential (primary) hypertension; N28.9 Disorder of kidney and ureter, unspecified
CPT/HCPCS: 36415; 71045; 80053; 82550; 83690; 83880; 84484; 85025; 93005; 99285; Q0162

== ENCOUNTER 2021-10-03 00:24 | Emergency (ER) | payer MEDICARE, OTHER ==
[~2021-10-03] VITALS: Ht 167.6 cm; Wt 54.5 kg
[~2021-10-03 00:24] MED LIST changes: +ONDA-104 PO
[2021-10-03 00:32] VITALS: BP 127/59
[2021-10-03] MEDS ORDERED: MELA3TAB89 PO (07:28)
== END 2021-10-03 02:30 | disposition left against medical advice (07) ==
LOC: EMS 00:29
DX: G47.00 Insomnia, unspecified (principal); Z53.21 Procedure and treatment not carried out due to patient leaving prior to being seen by health care provider

== ENCOUNTER 2021-10-03 04:50 | Emergency (ER) | payer MEDICARE, OTHER ==
[~2021-10-03] VITALS: Ht 167.6 cm; Wt 54.0 kg
[2021-10-03] MEDS ORDERED: MELA3TAB89 PO (07:28)
[2021-10-03 07:34] VITALS: BP 135/77
== END 2021-10-03 08:11 | disposition home or self-care (01) ==
LOC: EMS 04:56
DX: G47.00 Insomnia, unspecified (principal); I10 Essential (primary) hypertension; J44.9 Chronic obstructive pulmonary disease, unspecified; J45.909 Unspecified asthma, uncomplicated; Z87.891 Personal history of nicotine dependence; Z79.899 Other long term (current) drug therapy
CPT/HCPCS: 99282; Z7502

== ENCOUNTER 2021-10-07 13:56 | Emergency (ER) | payer MEDICARE, OTHER ==
[~2021-10-07 13:56] MED LIST changes: +MELA3TAB89 PO
[2021-10-07] MEDS ORDERED: DOCU-350 PO (23:17)
== END 2021-10-07 14:32 | disposition left against medical advice (07) ==
LOC: EMS 13:56
DX: Z53.21 Procedure and treatment not carried out due to patient leaving prior to being seen by health care provider (principal)

== ENCOUNTER 2021-10-07 19:34 | Emergency (ER) | payer MEDICARE, OTHER ==
[~2021-10-07] VITALS: Ht 167.6 cm; Wt 58.2 kg
[2021-10-07 22:31] VITALS: BP 112/55
[2021-10-07 23:04] LABS: BASOPHILS % (AUTO) 0.3 % (0.0-2.0); EOSINOPHILS % (AUTO) 1.6 % (1.0-6.0); HEMATOCRIT 32.6 % (41-53); HEMOGLOBIN 10.5 g/dL (13.5-17.5); LYMPHOCYTES # (AUTO) 1.5 K/uL (1.0-4.8); LYMPHOCYTES % (AUTO) 15.2 % (22.0-44.0); MEAN CORPUSCULAR HGB CONC 32.3 G/dL (31.0-37.0); MEAN CORPUSCULAR VOLUME 83 fL (80-100); MONOCYTES # (AUTO) 1.2 K/uL (0.1-1.0); MONOCYTES % (AUTO) 12.5 % (2.0-9.0); NEUTROPHILS # (AUTO) 6.9 K/uL (1.8-7.7); NEUTROPHILS % (AUTO) 70.4 % (40.0-70.0); PLATELET COUNT (AUTO) 194 K/uL (150-450); RED BLOOD CELL COUNT(AUTO) 3.91 MIL/uL (4.50-5.90); RED CELL DISTRIBUTION WIDTH 13.5 % (11.5-14.5)
[2021-10-07 23:13] LABS: CALCIUM, TOTAL 9.4 mg/dL (8.8-10.5); CREATININE 2.87 mg/dL (0.60-1.30); POTASSIUM 4.3 mmol/L (3.5-5.1)
[2021-10-07] MEDS ORDERED: DOCU-350 PO (23:17)
== END 2021-10-07 23:24 | disposition home or self-care (01) ==
LOC: EMS 19:39
DX: R53.1 Weakness (principal); K59.00 Constipation, unspecified; J45.909 Unspecified asthma, uncomplicated; J44.9 Chronic obstructive pulmonary disease, unspecified; I10 Essential (primary) hypertension; Z87.09 Personal history of other diseases of the respiratory system; Z87.448 Personal history of other diseases of urinary system; Z87.898 Personal history of other specified conditions
CPT/HCPCS: 80048; 85025; 99283

== ENCOUNTER 2021-11-25 14:32 | Emergency (ER) | payer MEDICARE, OTHER ==
[~2021-11-25] VITALS: Ht 170.2 cm; Wt 61.4 kg
[~2021-11-25 14:32] MED LIST changes: +DOCU-350 PO
[2021-11-25 15:42] LABS: BASOPHILS % (AUTO) 0.6 % (0.0-2.0); EOSINOPHILS % (AUTO) 9.7 % (1.0-6.0); HEMATOCRIT 32.1 % (41-53); HEMOGLOBIN 10.4 g/dL (13.5-17.5); LYMPHOCYTES # (AUTO) 1.6 K/uL (1.0-4.8); LYMPHOCYTES % (AUTO) 30.4 % (22.0-44.0); MEAN CORPUSCULAR HEMOGLOBIN 26.4 pg (26.0-34.0); MEAN CORPUSCULAR HGB CONC 32.4 G/dL (31.0-37.0); MEAN CORPUSCULAR VOLUME 82 fL (80-100); MONOCYTES # (AUTO) 0.7 K/uL (0.1-1.0); MONOCYTES % (AUTO) 13.4 % (2.0-9.0); NEUTROPHILS # (AUTO) 2.5 K/uL (1.8-7.7); NEUTROPHILS % (AUTO) 45.9 % (40.0-70.0); PLATELET COUNT (AUTO) 186 K/uL (150-450); RED BLOOD CELL COUNT(AUTO) 3.93 MIL/uL (4.50-5.90); RED CELL DISTRIBUTION WIDTH 15.1 % (11.5-14.5)
[2021-11-25 15:44] LABS: COVID AG,FIA SOURCE NASAL SWAB
[2021-11-25 15:45] LABS: CALCIUM, TOTAL 9.6 mg/dL (8.8-10.5); CREATININE 1.75 mg/dL (0.60-1.30); POTASSIUM 3.6 mmol/L (3.5-5.1)
[2021-11-25 15:51] LABS: ALBUMIN 3.6 g/dL (3.4-5.0); BILIRUBIN,TOTAL 0.5 mg/dL (0.1-1.0); TOTAL PROTEIN, SERUM 6.6 g/dL (6.4-8.2)
[2021-11-25] MEDS ORDERED: ALBUTEROL SULFATE HFA 90 MCG/PUFF 8 GM INHALER IH ONE (16:45)
[2021-11-25] MEDS ORDERED: DiphenhydrAMINE HCL 25 MG CAPSULE PO ONE (16:45)
[2021-11-25 17:59] VITALS: BP 128/65
== END 2021-11-25 18:01 | disposition home or self-care (01) ==
LOC: EMS 14:32
DX: J44.1 Chronic obstructive pulmonary disease with (acute) exacerbation (principal); I12.9 Hypertensive chronic kidney disease with stage 1 through stage 4 chronic kidney disease, or unspecified chronic kidney disease; N18.9 Chronic kidney disease, unspecified; Z87.09 Personal history of other diseases of the respiratory system; Z87.898 Personal history of other specified conditions; Z98.890 Other specified postprocedural states; Z20.822 Contact with and (suspected) exposure to COVID-19
CPT/HCPCS: 71045; 80053; 83880; 84484; 85025; 87040; 93005; 94640; 99285; J3535; 36415-L1; 36415-TC

== ENCOUNTER 2022-03-20 16:01 | Emergency (ER) | payer MEDICARE, OTHER ==
[~2022-03-20] VITALS: Ht 167.6 cm; Wt 59.1 kg
[2022-03-20] MEDS ORDERED: SODIUM CHLORIDE 0.9% 500 ML IV ONE (17:00)
[2022-03-20 17:31] LABS: BASOPHILS % (AUTO) 0.2 % (0.0-2.0); EOSINOPHILS % (AUTO) 0.2 % (1.0-6.0); HEMATOCRIT 37.9 % (41-53); LYMPHOCYTES # (AUTO) 0.4 K/uL (1.0-4.8); LYMPHOCYTES % (AUTO) 5.5 % (22.0-44.0); MEAN CORPUSCULAR HEMOGLOBIN 28.5 pg (26.0-34.0); MEAN CORPUSCULAR HGB CONC 31.7 G/dL (31.0-37.0); MEAN CORPUSCULAR VOLUME 90 fL (80-100); MONOCYTES # (AUTO) 0.4 K/uL (0.1-1.0); MONOCYTES % (AUTO) 4.8 % (2.0-9.0); NEUTROPHILS # (AUTO) 6.9 K/uL (1.8-7.7); PLATELET COUNT (AUTO) 218 K/uL (150-450); RED BLOOD CELL COUNT(AUTO) 4.22 MIL/uL (4.50-5.90); RED CELL DISTRIBUTION WIDTH 14.3 % (11.5-14.5)
[2022-03-20 17:33] LABS: NEUTROPHILS % (AUTO) 89.3 % (40.0-70.0)
[2022-03-20 17:46] LABS: CALCIUM, TOTAL 9.4 mg/dL (8.8-10.5); CREATININE 1.74 mg/dL (0.60-1.30); POTASSIUM 4.2 mmol/L (3.5-5.1)
[2022-03-20 17:49] LABS: ALBUMIN 3.7 g/dL (3.4-5.0); BILIRUBIN,TOTAL 0.5 mg/dL (0.1-1.0); TOTAL PROTEIN, SERUM 6.6 g/dL (6.4-8.2)
[2022-03-20 20:09] LABS: APPEARANCE,URINE CLEAR (CLEAR); BILIRUBIN,URINE NEGATIVE (NEGATIVE); GLUCOSE, URINE (UA) NEGATIVE (NEGATIVE); KETONES,URINE NEGATIVE (NEGATIVE); LEUKOCYTE ESTERASE ,URINE NEGATIVE (NEGATIVE); NITRATE,URINE NEGATIVE (NEGATIVE); OCCULT BLOOD,URINE NEGATIVE (NEGATIVE); PROTEIN,URINE NEGATIVE (NEGATIVE); SPECIFIC GRAVITIY, URINE 1.006 (1.003-1.030); UROBILINOGEN,URINE <=1.0 mg/dL (<=1.0)
[2022-03-20 20:49] VITALS: BP 145/88
== END 2022-03-20 20:51 | disposition home or self-care (01) ==
LOC: EMS 16:20
DX: R10.31 Right lower quadrant pain (principal); J44.9 Chronic obstructive pulmonary disease, unspecified; I10 Essential (primary) hypertension; Z87.01 Personal history of pneumonia (recurrent)
CPT/HCPCS: 99285; 74176; 96360; 80053; 81003; 83690; 84484; 85025; 36415; 74022; 93005; J7030

== ENCOUNTER 2022-03-21 12:57 | Emergency (ER) | payer OTHER ==
[~2022-03-21] VITALS: Ht 167.6 cm; Wt 59.1 kg
[2022-03-21 13:08] VITALS: BP 111/72
== END 2022-03-21 14:36 | disposition left against medical advice (07) ==
LOC: EMS 12:57
DX: Z53.21 Procedure and treatment not carried out due to patient leaving prior to being seen by health care provider (principal)

== ENCOUNTER 2022-06-18 05:48 | Day surgery (SDC) | payer OTHER ==
[~2022-06-18] VITALS: Ht 167.6 cm; Wt 59.0 kg
[~2022-06-18 05:48] MED LIST changes: -CHOL25TA4 PO; -MELA3TAB89 PO; -ONDA-104 PO
[2022-06-18] MEDS ORDERED: SODIUM CHLORIDE 0.9% 1,000 ML IV ONE (06:30)
[2022-06-18 06:43] LABS: COVID AG,FIA SOURCE NASAL SWAB
[2022-06-18] MEDS ORDERED: SODIUM CHLORIDE 0.9% 0 ML ONE (07:13)
[2022-06-18] MEDS ORDERED: SODIUM CHLORIDE 0.9% 1,000 ML ONE (07:20)
[2022-06-18] MEDS ORDERED: DICL100G51 TP (07:28)
[2022-06-18] MEDS ORDERED: FLUT16SP NASAL (07:30)
[2022-06-18] MEDS ORDERED: MONT-35 PO (07:42)
[2022-06-18] MEDS ORDERED: ALLO-45 PO (07:44)
[2022-06-18] MEDS ORDERED: LOSA-381 PO (07:45)
[2022-06-18] MEDS ORDERED: ESCI5TAB16 PO (07:46)
[2022-06-18] MEDS ORDERED: DOXY75TA14 PO (07:49)
[2022-06-18] MEDS ORDERED: FAMO20 PO (07:50)
[2022-06-18] MEDS ORDERED: FentaNYL CITRATE PF 100 MCG/2 ML VIAL ONE (08:01)
[2022-06-18] MEDS ORDERED: MIDAZOLAM HCL 2 MG/2 ML VIAL ONE (08:01)
[2022-06-18] MEDS ORDERED: PRED-729 PO (08:11)
[2022-06-18] MEDS ORDERED: MethylPREDNISolone SOD SUCC 125 MG/2 ML VIAL ONE (09:21)
[2022-06-18] MEDS ORDERED: MethylPREDNISolone SOD SUCC 125 MG/2 ML VIAL IVP ONE (09:30)
[2022-06-18] MEDS ORDERED: OXYGEN THERAPY IH SCH (20:00)
== END 2022-06-18 12:15 | disposition home or self-care (01) ==
LOC: SURGERY 05:48
PROVIDERS: ATTEND Internal Medicine Critical Care Medicine
DX: J38.4 Edema of larynx (principal); B37.0 Candidal stomatitis; Z20.822 Contact with and (suspected) exposure to COVID-19; Z98.890 Other specified postprocedural states; Z79.899 Other long term (current) drug therapy
CPT/HCPCS: 31623; 88112; 87101; 87220; 87070; 88305; 31624; 94640; 71045; 87015; 87426; 87206; J3010; J2250; J2930; J7030; C9803

== ENCOUNTER 2022-09-04 14:51 | Emergency (ER) | payer MEDICARE, OTHER ==
[~2022-09-04] VITALS: Ht 167.6 cm; Wt 62.7 kg
[~2022-09-04 14:51] MED LIST changes: +ALLO-45 PO; -AMLO-258 PO; -ATOR20TA86 PO; -CLOP75TA60 PO; +DICL100G51 TP; -DOCU-350 PO; +DOXY75TA14 PO; +ESCI5TAB16 PO; +FAMO20 PO; +FLUT16SP NASAL; -GUAIFDM PO; +LOSA-381 PO; -METO5TAB2 PO; +MONT-35 PO; -POLY510P31 PO; +PRED-729 PO
[2022-09-04] MEDS ORDERED: GABA-1181 PO (15:24)
[2022-09-04] MEDS ORDERED: ESCI-8 PO (15:24)
[2022-09-04] MEDS ORDERED: MAG HYDROX/AL HYDROX/SIMETH 30 ML SUSP UDCUP PO ONE (15:30)
[2022-09-04] MEDS ORDERED: ONDANSETRON HCL 4 MG/2 ML VIAL IVP ONE (15:30)
[2022-09-04] MEDS ORDERED: FAMOTIDINE 10 MG/ML 2 ML VIAL IVP ONE (15:30)
[2022-09-04] MEDS ORDERED: ACETAMINOPHEN 500 MG TABLET PO ONE (15:30)
[2022-09-04 15:55] LABS: BASOPHILS % (AUTO) 0.2 % (0.0-2.0); EOSINOPHILS % (AUTO) 0.2 % (1.0-6.0); HEMATOCRIT 40.1 % (41-53); HEMOGLOBIN 12.5 g/dL (13.5-17.5); LYMPHOCYTES # (AUTO) 0.7 K/uL (1.0-4.8); LYMPHOCYTES % (AUTO) 6.8 % (22.0-44.0); MEAN CORPUSCULAR HEMOGLOBIN 27.3 pg (26.0-34.0); MEAN CORPUSCULAR HGB CONC 31.1 G/dL (31.0-37.0); MEAN CORPUSCULAR VOLUME 88 fL (80-100); MONOCYTES # (AUTO) 0.4 K/uL (0.1-1.0); MONOCYTES % (AUTO) 4.1 % (2.0-9.0); PLATELET COUNT (AUTO) 200 K/uL (150-450); RED BLOOD CELL COUNT(AUTO) 4.57 MIL/uL (4.50-5.90); RED CELL DISTRIBUTION WIDTH 15.3 % (11.5-14.5)
[2022-09-04 15:59] LABS: COVID AG,FIA SOURCE NASOPHARYNGEAL
[2022-09-04 16:03] LABS: NEUTROPHILS % (AUTO) 88.7 % (40.0-70.0)
[2022-09-04 16:04] LABS: ANION GAP 9 mmol/L (8-16); CALCIUM, TOTAL 8.8 mg/dL (8.8-10.5); CARBON DIOXIDE 27 mmol/L (22-29); CHLORIDE 106 mmol/L (98-107); CREATININE 1.38 mg/dL (0.60-1.30); GLOMERULAR FILTR. RATE CALC 50 mL/min (>60); GLUCOSE,RANDOM 102 mg/dL (70-110); POTASSIUM 3.9 mmol/L (3.5-5.1); SODIUM SERUM 142 mmol/L (136-145); UREA NITROGEN, BLOOD 19 mg/dL (7-18)
[2022-09-04 16:08] LABS: PROTHROMBIN TIME 10.3 SEC (9.4-11.6)
[2022-09-04 16:09] LABS: B-TYPE NATRIURETIC PEPTIDE 48 pg/mL (0-100)
[2022-09-04 16:14] LABS: APPEARANCE,URINE CLEAR (CLEAR); BILIRUBIN,URINE NEGATIVE (NEGATIVE); GLUCOSE, URINE (UA) NEGATIVE (NEGATIVE); KETONES,URINE NEGATIVE (NEGATIVE); LEUKOCYTE ESTERASE ,URINE NEGATIVE (NEGATIVE); NITRATE,URINE NEGATIVE (NEGATIVE); OCCULT BLOOD,URINE TRACE (NEGATIVE); PROTEIN,URINE 30-70 mg/dL (NEGATIVE); UROBILINOGEN,URINE <=1.0 mg/dL (<=1.0)
[2022-09-04 16:16] LABS: LACTIC ACID 2.9 mmol/L (0.4-2.0)
[2022-09-04 16:16] LABS: BACTERIA,URINE None Seen /HPF (None Seen); RBC,URINE 0-2 /HPF (0-2); WBC,URINE None Seen /HPF (0-5)
[2022-09-04 16:19] LABS: INFLUENZA TYPE A NEGATIVE FOR TYPE A (NEGATIVE); INFLUENZA TYPE B NEGATIVE FOR TYPE B (NEGATIVE)
[2022-09-04 16:30] LABS: ALANINE AMINOTRANSFERASE 38 U/L (12-78); ALBUMIN 3.8 g/dL (3.4-5.0); ALKALINE PHOSPHATASE 60 U/L (46-116); ASPARTATE AMINOTRANSFERASE 23 U/L (15-37); BILIRUBIN,TOTAL 0.6 mg/dL (0.1-1.0); CREATINE KINASE, TOTAL ONLY 194 U/L (39-308); LIPASE 87 U/L (73-393); PHOSPHORUS 2.8 mg/dL (2.5-4.9); TOTAL PROTEIN, SERUM 6.6 g/dL (6.4-8.2)
[2022-09-04] MEDS ORDERED: SODIUM CHLORIDE 0.9% 1,000 ML IV ONE ×2 (16:30)
[2022-09-04] MEDS ORDERED: IOHEXOL 350 MG/ML 100 ML VIAL ONE (16:36)
[2022-09-04] MEDS ORDERED: SODIUM CHLORIDE 0.9% 100 ML ONE (16:36)
[2022-09-04] MEDS ORDERED: SODIUM CHLORIDE 0.9% 500 ML IV ONE (16:45)
[2022-09-04 18:30] VITALS: BP 155/78
== END 2022-09-04 19:19 | disposition home or self-care (01) ==
LOC: EMS 14:53
DX: R10.9 Unspecified abdominal pain (principal); E87.20 Acidosis, unspecified; J45.909 Unspecified asthma, uncomplicated; I10 Essential (primary) hypertension; J44.9 Chronic obstructive pulmonary disease, unspecified; J18.9 Pneumonia, unspecified organism; G89.29 Other chronic pain; Z87.891 Personal history of nicotine dependence; Z20.822 Contact with and (suspected) exposure to COVID-19
CPT/HCPCS: 99285; 74177; 96374; 71045; 96361; 96375; 87426; 80053; 81001; 82550; 83605; 83690; 83735; 83880; 84100; 84484; 85025; 85610; 85730; 87804; 36415; 93005; J3490; J2405; Q9967; J7050; J7040

== ENCOUNTER 2022-10-29 09:33 | Emergency (ER) | payer OTHER ==
[~2022-10-29] VITALS: Ht 167.6 cm; Wt 68.2 kg
[~2022-10-29 09:33] MED LIST changes: -DOXY75TA14 PO; +ESCI-8 PO; -ESCI5TAB16 PO; +GABA-1181 PO; -GABA-1216 PO; -PRED-729 PO
[2022-10-29] MEDS ORDERED: HYDR-4527 PO (09:45)
[2022-10-29] MEDS ORDERED: AMLO-258 PO (09:45)
[2022-10-29] MEDS ORDERED: PRED-729 PO (09:45)
[2022-10-29] MEDS ORDERED: FURO20 PO (09:45)
[2022-10-29] MEDS ORDERED: CHOL25TA4 PO (09:45)
[2022-10-29] MEDS ORDERED: SUCR1TAB PO (09:45)
[2022-10-29] MEDS ORDERED: METHOCARBAMOL 500 MG TABLET PO ONE (10:15)
[2022-10-29] MEDS ORDERED: KETOROLAC TROMETHAMINE 60 MG/2 ML VIAL IM ONE (10:15)
[2022-10-29] MEDS ORDERED: IBUP-1492 PO (12:59)
[2022-10-29 13:08] VITALS: BP 108/64
== END 2022-10-29 13:10 | disposition home or self-care (01) ==
LOC: EMS 09:35
DX: M54.50 Low back pain, unspecified (principal); J45.909 Unspecified asthma, uncomplicated; J44.9 Chronic obstructive pulmonary disease, unspecified; I10 Essential (primary) hypertension; G89.29 Other chronic pain; Z87.891 Personal history of nicotine dependence; Z90.49 Acquired absence of other specified parts of digestive tract; Z98.890 Other specified postprocedural states
CPT/HCPCS: 99283; 96372; J1885

== ENCOUNTER 2022-12-23 03:37 | Emergency (ER) | payer OTHER ==
[~2022-12-23] VITALS: Ht 167.6 cm; Wt 63.0 kg
[~2022-12-23 03:37] MED LIST changes: +AMLO-258 PO; +CHOL25TA4 PO; -DICL100G51 TP; +DICL100G60 TP; +FURO20 PO; +HYDR-4527 PO; +IBUP-1492 PO; -OMEP20 PO; +PRED-729 PO; +SUCR1TAB PO
[2022-12-23] MEDS ORDERED: ACETAMINOPHEN 500 MG TABLET PO ONE (04:00)
[2022-12-23] MEDS ORDERED: SODIUM CHLORIDE 0.9% 100 ML ONE (04:10)
[2022-12-23] MEDS ORDERED: IOHEXOL 350 MG/ML 100 ML VIAL ONE (04:11)
[2022-12-23 04:21] LABS: BASOPHILS % (AUTO) 0.5 % (0.0-2.0); EOSINOPHILS % (AUTO) 0.5 % (1.0-6.0); HEMATOCRIT 35.1 % (41-53); HEMOGLOBIN 11.4 g/dL (13.5-17.5); LYMPHOCYTES # (AUTO) 1.8 K/uL (1.0-4.8); LYMPHOCYTES % (AUTO) 17.8 % (22.0-44.0); MEAN CORPUSCULAR HEMOGLOBIN 27.7 pg (26.0-34.0); MEAN CORPUSCULAR HGB CONC 32.5 G/dL (31.0-37.0); MEAN CORPUSCULAR VOLUME 85 fL (80-100); MONOCYTES # (AUTO) 0.7 K/uL (0.1-1.0); MONOCYTES % (AUTO) 6.9 % (2.0-9.0); NEUTROPHILS # (AUTO) 7.6 K/uL (1.8-7.7); NEUTROPHILS % (AUTO) 74.3 % (40.0-70.0); PLATELET COUNT (AUTO) 211 K/uL (150-450); RED BLOOD CELL COUNT(AUTO) 4.11 MIL/uL (4.50-5.90); RED CELL DISTRIBUTION WIDTH 16.9 % (11.5-14.5)
[2022-12-23 04:41] LABS: CREATININE 1.5 mg/dL (0.60-1.30); POTASSIUM 4.1 mmol/L (3.5-5.1)
[2022-12-23 04:46] LABS: ALBUMIN 3.4 g/dL (3.4-5.0); BILIRUBIN,TOTAL 0.4 mg/dL (0.1-1.0); TOTAL PROTEIN, SERUM 6.4 g/dL (6.4-8.2)
[2022-12-23] MEDS ORDERED: DOCUSATE SODIUM 100 MG CAPSULE PO ONE (05:15)
[2022-12-23] MEDS ORDERED: DOCU-385 PO (05:32)
[2022-12-23 06:00] VITALS: BP 135/68; PULSE 74; RESP 18; TEMP 97.3
== END 2022-12-23 06:00 | disposition home or self-care (01) ==
LOC: EMS 03:38
DX: K59.00 Constipation, unspecified (principal); R10.9 Unspecified abdominal pain; J45.909 Unspecified asthma, uncomplicated; J44.9 Chronic obstructive pulmonary disease, unspecified; K21.9 Gastro-esophageal reflux disease without esophagitis; I10 Essential (primary) hypertension; J18.9 Pneumonia, unspecified organism; G89.29 Other chronic pain; Z86.73 Personal history of transient ischemic attack (TIA), and cerebral infarction without residual deficits; Z87.891 Personal history of nicotine dependence; Z90.49 Acquired absence of other specified parts of digestive tract
CPT/HCPCS: 99285; 74177; 80053; 83690; 85025; 36415; Q9967; J7050

== ENCOUNTER 2022-12-25 14:01 | Emergency (ER) | payer OTHER ==
[~2022-12-25] VITALS: Ht 167.6 cm; Wt 59.1 kg
[~2022-12-25 14:01] MED LIST changes: +DOCU-385 PO
[2022-12-25 16:22] LABS: BASOPHILS % (AUTO) 0.4 % (0.0-2.0); EOSINOPHILS % (AUTO) 1.9 % (1.0-6.0); HEMATOCRIT 34.2 % (41-53); HEMOGLOBIN 10.7 g/dL (13.5-17.5); LYMPHOCYTES # (AUTO) 0.9 K/uL (1.0-4.8); LYMPHOCYTES % (AUTO) 10.9 % (22.0-44.0); MEAN CORPUSCULAR HEMOGLOBIN 26.7 pg (26.0-34.0); MEAN CORPUSCULAR HGB CONC 31.4 G/dL (31.0-37.0); MEAN CORPUSCULAR VOLUME 85 fL (80-100); MONOCYTES # (AUTO) 0.4 K/uL (0.1-1.0); MONOCYTES % (AUTO) 5.3 % (2.0-9.0); NEUTROPHILS # (AUTO) 6.4 K/uL (1.8-7.7); NEUTROPHILS % (AUTO) 81.5 % (40.0-70.0); PLATELET COUNT (AUTO) 214 K/uL (150-450); RED BLOOD CELL COUNT(AUTO) 4.01 MIL/uL (4.50-5.90); RED CELL DISTRIBUTION WIDTH 16.7 % (11.5-14.5)
[2022-12-25 16:29] LABS: CALCIUM, TOTAL 8.9 mg/dL (8.8-10.5); CREATININE 1.55 mg/dL (0.60-1.30); POTASSIUM 3.4 mmol/L (3.5-5.1)
[2022-12-25] MEDS ORDERED: IOHEXOL 350 MG/ML 100 ML VIAL ONE (17:24)
[2022-12-25] MEDS ORDERED: SODIUM CHLORIDE 0.9% 100 ML ONE (17:24)
[2022-12-25 19:28] VITALS: BP 134/68; PULSE 67; RESP 17; TEMP 98.3
== END 2022-12-25 19:31 | disposition home or self-care (01) ==
LOC: EMS 14:02
DX: R07.89 Other chest pain (principal); J44.9 Chronic obstructive pulmonary disease, unspecified; I10 Essential (primary) hypertension; G89.29 Other chronic pain; Z90.49 Acquired absence of other specified parts of digestive tract; Z87.891 Personal history of nicotine dependence; Z98.890 Other specified postprocedural states
CPT/HCPCS: 99285; 71275; 71045; 80048; 84484; 85025; 85379; 36415; 93005; Q9967; J7050

== ENCOUNTER 2023-01-28 14:28 | Emergency (ER) | payer MEDICARE, OTHER ==
[~2023-01-28] VITALS: Ht 167.6 cm; Wt 62.7 kg
[2023-01-28 14:38] VITALS: TEMP 97.8
[2023-01-28] MEDS ORDERED: SODIUM CHLORIDE 0.9% 1,000 ML IV ONE (15:15)
[2023-01-28 15:29] LABS: BASOPHILS % (AUTO) 0.6 % (0.0-2.0); EOSINOPHILS % (AUTO) 2.8 % (1.0-6.0); HEMATOCRIT 37.3 % (41-53); LYMPHOCYTES # (AUTO) 2.3 K/uL (1.0-4.8); MEAN CORPUSCULAR HEMOGLOBIN 27.6 pg (26.0-34.0); MEAN CORPUSCULAR HGB CONC 32.1 G/dL (31.0-37.0); MEAN CORPUSCULAR VOLUME 86 fL (80-100); MONOCYTES # (AUTO) 1.2 K/uL (0.1-1.0); MONOCYTES % (AUTO) 11.1 % (2.0-9.0); NEUTROPHILS # (AUTO) 6.7 K/uL (1.8-7.7); NEUTROPHILS % (AUTO) 63.5 % (40.0-70.0); PLATELET COUNT (AUTO) 284 K/uL (150-450); RED BLOOD CELL COUNT(AUTO) 4.35 MIL/uL (4.50-5.90); RED CELL DISTRIBUTION WIDTH 15.6 % (11.5-14.5); WHITE BLOOD COUNT (AUTO) 10.6 K/uL (4.5-11.0)
[2023-01-28 15:35] LABS: CALCIUM, TOTAL 9.8 mg/dL (8.8-10.5); CREATININE 1.59 mg/dL (0.60-1.30)
[2023-01-28 15:41] LABS: BILIRUBIN,TOTAL 0.4 mg/dL (0.1-1.0); TOTAL PROTEIN, SERUM 7.2 g/dL (6.4-8.2)
[2023-01-28 15:43] LABS: TROPONIN I-HIGH SENSITIVITY 7 ng/L (<76)
[2023-01-28] MEDS ORDERED: FAMOTIDINE 20 MG/2 ML VIAL IVP ONE (16:00)
[2023-01-28 16:29] VITALS: BP_DIAS 80
[2023-01-28 18:40] LABS: APPEARANCE,URINE CLEAR (CLEAR); BILIRUBIN,URINE NEGATIVE (NEGATIVE); COLOR,URINE LIGHT YELLOW (YELLOW); GLUCOSE, URINE (UA) NEGATIVE (NEGATIVE); LEUKOCYTE ESTERASE ,URINE NEGATIVE (NEGATIVE); NITRATE,URINE NEGATIVE (NEGATIVE); OCCULT BLOOD,URINE NEGATIVE (NEGATIVE); PH,URINE 5.5 (5.0-8.0); PROTEIN,URINE 30-70 mg/dL (NEGATIVE); SPECIFIC GRAVITIY, URINE 1.021 (1.003-1.030); UROBILINOGEN,URINE <=1.0 mg/dL (<=1.0)
[2023-01-28] MEDS ORDERED: TraMADol HCL 50 MG TABLET PO ONE (19:45)
[2023-01-28 20:05] VITALS: BP_SYST 78; PULSE 75; RESP 18
[2023-01-28] MEDS ORDERED: TRAM-559 PO (20:21)
== END 2023-01-28 20:41 | disposition home or self-care (01) ==
LOC: EMS 14:37
DX: S32.009A Unspecified fracture of unspecified lumbar vertebra, initial encounter for closed fracture (principal); R10.84 Generalized abdominal pain; K59.00 Constipation, unspecified; J44.9 Chronic obstructive pulmonary disease, unspecified; I10 Essential (primary) hypertension; G89.29 Other chronic pain; Z90.49 Acquired absence of other specified parts of digestive tract; Z98.890 Other specified postprocedural states; Z87.891 Personal history of nicotine dependence; X58.XXXA Exposure to other specified factors, initial encounter; Y93.89 Activity, other specified; Y92.89 Other specified places as the place of occurrence of the external cause; Y99.8 Other external cause status
CPT/HCPCS: 99285; 74176; 96374; 96361; 80053; 81003; 83690; 84484; 85025; 36415; 74022; J3490; J7030

== ENCOUNTER 2023-02-09 06:38 | Emergency (ER) | payer MEDICARE, OTHER ==
[~2023-02-09] VITALS: Ht 172.7 cm; Wt 70.0 kg
[~2023-02-09 06:38] MED LIST changes: +TRAM-559 PO
[2023-02-09 06:40] VITALS: TEMP 98.1
[2023-02-09] MEDS ORDERED: SODIUM CHLORIDE 0.9% 1,000 ML IV ONE (07:30)
[2023-02-09] MEDS ORDERED: MORPHINE SULFATE 2 MG/ML SYRINGE IVP ONE (07:30)
[2023-02-09 07:56] LABS: BASOPHILS % (AUTO) 0.6 % (0.0-2.0); EOSINOPHILS % (AUTO) 2.1 % (1.0-6.0); HEMATOCRIT 35.7 % (41-53); HEMOGLOBIN 11.1 g/dL (13.5-17.5); LYMPHOCYTES # (AUTO) 1.4 K/uL (1.0-4.8); LYMPHOCYTES % (AUTO) 18.2 % (22.0-44.0); MEAN CORPUSCULAR HGB CONC 31.2 G/dL (31.0-37.0); MEAN CORPUSCULAR VOLUME 87 fL (80-100); MONOCYTES % (AUTO) 13.5 % (2.0-9.0); NEUTROPHILS % (AUTO) 65.6 % (40.0-70.0); PLATELET COUNT (AUTO) 224 K/uL (150-450); RED BLOOD CELL COUNT(AUTO) 4.13 MIL/uL (4.50-5.90); RED CELL DISTRIBUTION WIDTH 15.3 % (11.5-14.5); WHITE BLOOD COUNT (AUTO) 7.6 K/uL (4.5-11.0)
[2023-02-09 08:12] LABS: CALCIUM, TOTAL 9.1 mg/dL (8.8-10.5); CREATININE 1.93 mg/dL (0.60-1.30); POTASSIUM 3.9 mmol/L (3.5-5.1); TROPONIN I-HIGH SENSITIVITY 5 ng/L (<76)
[2023-02-09 08:14] VITALS: BP 118/59; PULSE 71; RESP 18
[2023-02-09 08:17] LABS: ALBUMIN 3.4 g/dL (3.4-5.0); BILIRUBIN,TOTAL 0.3 mg/dL (0.1-1.0); TOTAL PROTEIN, SERUM 6.6 g/dL (6.4-8.2)
[2023-02-09 08:49] LABS: APPEARANCE,URINE HAZY (CLEAR); BILIRUBIN,URINE NEGATIVE (NEGATIVE); COLOR,URINE YELLOW (YELLOW); GLUCOSE, URINE (UA) NEGATIVE (NEGATIVE); KETONES,URINE NEGATIVE (NEGATIVE); LEUKOCYTE ESTERASE ,URINE NEGATIVE (NEGATIVE); NITRATE,URINE NEGATIVE (NEGATIVE); OCCULT BLOOD,URINE NEGATIVE (NEGATIVE); PH,URINE 5.5 (5.0-8.0); PROTEIN,URINE 30-70 mg/dL (NEGATIVE); SPECIFIC GRAVITIY, URINE 1.021 (1.003-1.030); UROBILINOGEN,URINE <=1.0 mg/dL (<=1.0)
[2023-02-10] MEDS ORDERED: DOXY-354 PO (20:07)
[2023-02-10] MEDS ORDERED: AMOX1TAB16 PO (20:07)
== END 2023-02-09 09:26 | disposition home or self-care (01) ==
LOC: EMS 06:39
DX: D64.9 Anemia, unspecified (principal); I12.9 Hypertensive chronic kidney disease with stage 1 through stage 4 chronic kidney disease, or unspecified chronic kidney disease; N18.9 Chronic kidney disease, unspecified; R10.84 Generalized abdominal pain; J45.909 Unspecified asthma, uncomplicated; J44.9 Chronic obstructive pulmonary disease, unspecified; G89.29 Other chronic pain; Z87.891 Personal history of nicotine dependence; Z90.49 Acquired absence of other specified parts of digestive tract; Z98.890 Other specified postprocedural states
CPT/HCPCS: 99285; 74176; 96374; 71045; 96361; 80053; 81003; 83690; 84484; 85025; 36415; 93005; J2270; J7030

== ENCOUNTER 2023-02-10 17:20 | Emergency (ER) | payer MEDICARE, OTHER ==
[~2023-02-10] VITALS: Ht 165.1 cm; Wt 63.6 kg
[2023-02-10 17:39] VITALS: BP 154/69; PULSE 88; RESP 18; TEMP 98.6
[2023-02-10] MEDS ORDERED: ONDANSETRON HCL 4 MG TABLET PO ONE (19:15)
[2023-02-10 19:34] LABS: BASOPHILS % (AUTO) 0.8 % (0.0-2.0); HEMATOCRIT 35.5 % (41-53); HEMOGLOBIN 11.3 g/dL (13.5-17.5); LYMPHOCYTES # (AUTO) 1.5 K/uL (1.0-4.8); LYMPHOCYTES % (AUTO) 19.9 % (22.0-44.0); MEAN CORPUSCULAR HEMOGLOBIN 27.1 pg (26.0-34.0); MEAN CORPUSCULAR HGB CONC 31.7 G/dL (31.0-37.0); MEAN CORPUSCULAR VOLUME 86 fL (80-100); MONOCYTES # (AUTO) 1.1 K/uL (0.1-1.0); MONOCYTES % (AUTO) 15.1 % (2.0-9.0); NEUTROPHILS # (AUTO) 4.4 K/uL (1.8-7.7); NEUTROPHILS % (AUTO) 58.2 % (40.0-70.0); PLATELET COUNT (AUTO) 225 K/uL (150-450); RED BLOOD CELL COUNT(AUTO) 4.16 MIL/uL (4.50-5.90); RED CELL DISTRIBUTION WIDTH 15.2 % (11.5-14.5); WHITE BLOOD COUNT (AUTO) 7.5 K/uL (4.5-11.0)
[2023-02-10 19:42] LABS: CALCIUM, TOTAL 9.3 mg/dL (8.8-10.5); POTASSIUM 4.5 mmol/L (3.5-5.1)
[2023-02-10 19:50] LABS: ALBUMIN 3.3 g/dL (3.4-5.0); BILIRUBIN,TOTAL 0.4 mg/dL (0.1-1.0); TOTAL PROTEIN, SERUM 6.7 g/dL (6.4-8.2)
[2023-02-10] MEDS ORDERED: DOXY-354 PO (20:07)
[2023-02-10] MEDS ORDERED: AMOX1TAB16 PO (20:07)
[2023-02-10] MEDS ORDERED: DOXYCYCLINE HYCLATE 100 MG TABLET PO ONE (20:15)
[2023-02-10] MEDS ORDERED: AMOX TR/POT CLAV 875 MG/125 MG TABLET PO ONE (20:15)
== END 2023-02-10 21:01 | disposition home or self-care (01) ==
LOC: EMS 17:21
DX: J18.9 Pneumonia, unspecified organism (principal); R11.2 Nausea with vomiting, unspecified; J45.909 Unspecified asthma, uncomplicated; J44.9 Chronic obstructive pulmonary disease, unspecified; I10 Essential (primary) hypertension; G89.29 Other chronic pain; Z90.49 Acquired absence of other specified parts of digestive tract; Z87.891 Personal history of nicotine dependence; Z98.890 Other specified postprocedural states
CPT/HCPCS: 99284; 80053; 85025; 36415; Q0162

== ENCOUNTER 2023-02-13 08:22 | Inpatient (IN) | payer MEDICARE, MEDICAID ==
[~2023-02-13] VITALS: Ht 165.1 cm; Wt 59.7 kg
[~2023-02-13 08:22] MED LIST changes: +AMOX1TAB16 PO; +DOXY-354 PO
[2023-02-13] MEDS ORDERED: OMEP20 PO (08:44)
[2023-02-13 09:20] LABS: BASOPHILS % (AUTO) 0.4 % (0.0-2.0); EOSINOPHILS % (AUTO) 5.9 % (1.0-6.0); HEMATOCRIT 34.5 % (41-53); HEMOGLOBIN 10.9 g/dL (13.5-17.5); LYMPHOCYTES # (AUTO) 1.8 K/uL (1.0-4.8); LYMPHOCYTES % (AUTO) 18.3 % (22.0-44.0); MEAN CORPUSCULAR HEMOGLOBIN 26.9 pg (26.0-34.0); MEAN CORPUSCULAR HGB CONC 31.5 G/dL (31.0-37.0); MEAN CORPUSCULAR VOLUME 85 fL (80-100); MONOCYTES # (AUTO) 1.3 K/uL (0.1-1.0); MONOCYTES % (AUTO) 13.7 % (2.0-9.0); NEUTROPHILS # (AUTO) 5.9 K/uL (1.8-7.7); NEUTROPHILS % (AUTO) 61.7 % (40.0-70.0); PLATELET COUNT (AUTO) 238 K/uL (150-450); RED BLOOD CELL COUNT(AUTO) 4.04 MIL/uL (4.50-5.90); WHITE BLOOD COUNT (AUTO) 9.6 K/uL (4.5-11.0)
[2023-02-13 09:29] LABS: CREATININE 3.15 mg/dL (0.60-1.30); POTASSIUM 3.8 mmol/L (3.5-5.1)
[2023-02-13 09:33] LABS: PROTHROMBIN TIME 10.4 SEC (9.4-11.6)
[2023-02-13 09:37] LABS: LACTIC ACID 0.8 mmol/L (0.4-2.0); TROPONIN I-HIGH SENSITIVITY 10 ng/L (<76)
[2023-02-13 09:44] LABS: AMMONIA < 10 umol/L (11-32)
[2023-02-13 09:54] LABS: BILIRUBIN,TOTAL 0.3 mg/dL (0.1-1.0); TOTAL PROTEIN, SERUM 6.4 g/dL (6.4-8.2)
[2023-02-13 10:08] LABS: APPEARANCE,URINE HAZY (CLEAR); BILIRUBIN,URINE NEGATIVE (NEGATIVE); COLOR,URINE LIGHT ORANGE (YELLOW); GLUCOSE, URINE (UA) NEGATIVE (NEGATIVE); KETONES,URINE TRACE mg/dL (NEGATIVE); LEUKOCYTE ESTERASE ,URINE TRACE (NEGATIVE); NITRATE,URINE NEGATIVE (NEGATIVE); OCCULT BLOOD,URINE LARGE (NEGATIVE); PROTEIN,URINE 30-70 mg/dL (NEGATIVE); SPECIFIC GRAVITIY, URINE 1.026 (1.003-1.030)
[2023-02-13 10:14] LABS: ALCOHOL, URINE DRUG SCREEN NEGATIVE (NEGATIVE); AMPHET/METH SCREEN,URINE NEGATIVE (NEGATIVE); BARBITURATE SCREEN, URINE NEGATIVE (NEGATIVE); BENZODIAZEPINES SCREEN,URINE NEGATIVE (NEGATIVE); CANNABINOID SCREEN,URINE NEGATIVE (NEGATIVE); COCAINE SCREEN,URINE NEGATIVE (NEGATIVE); METHADONE SCREEN, URINE NEGATIVE (NEGATIVE); OPIATE SCREEN,URINE NEGATIVE (NEGATIVE); PHENCYCLIDINE SCREEN,URINE NEGATIVE (NEGATIVE)
[2023-02-13 10:27] LABS: BACTERIA,URINE None Seen /HPF (None Seen); RBC,URINE >100 /HPF (0-2); SQUAMOUS EPITHELIAL CELL,UR Rare /LPF (None Seen); WBC,URINE 0-2 /HPF (0-5)
[2023-02-13] MEDS ORDERED: SODIUM CHLORIDE 0.9% 1,000 ML IV ONE ×2 (11:00→13:45)
[2023-02-13] MEDS ORDERED: ACETAMINOPHEN 325 MG TABLET PO PRN (13:45)
[2023-02-13] MEDS ORDERED: BISACODYL 10 MG RECTAL RECTAL SUPPOSITORY PR PRN (13:45)
[2023-02-13] MEDS ORDERED: MAGNESIUM HYDROXIDE SUSPENSION 30 ML UDCUP PO PRN (13:45)
[2023-02-13] MEDS ORDERED: HYDROCODONE/ACETAMINOPHEN 5-325 MG TABLET PO PRN (13:45)
[2023-02-13] MEDS ORDERED: MORPHINE SULFATE 2 MG/ML SYRINGE IVP PRN (13:45)
[2023-02-13] MEDS ORDERED: *CLINICAL-LEVOFLOXACIN IVPB DOSING CLINICAL ONE (13:45)
[2023-02-13] MEDS ORDERED: ONDANSETRON HCL 4 MG/2 ML VIAL IVP PRN (13:45)
[2023-02-13] MEDS ORDERED: LEVOFLOXACIN 500 MG/D5% WATER 100 ML IV ONE (14:00)
[2023-02-13 16:25] LABS: COVID AG,FIA SOURCE NASAL SWAB
[2023-02-13 16:50] VITALS: BP 111/61; PULSE 69; RESP 18; TEMP 97.8
[2023-02-13 17:00] LABS: SARS-COV2 (COVID) ANTIGEN,FIA Negative (Negative)
[2023-02-13] MEDS: HEPARIN SODIUM,PORCINE 5,000 UNITS/ML VIAL SQ SCH ×2 (17:45→23:11)
[2023-02-13 20:46] VITALS: BP 124/70; PULSE 79; RESP 18; TEMP 99
[2023-02-13] MEDS: FLUTICASONE PROPIONATE 50 MCG/SPRAY 16 GM NASAL SPRAY NASAL SCH (23:11)
[2023-02-13] MEDS: DOCUSATE SODIUM 100 MG CAPSULE PO SCH (23:18)
[2023-02-14] MEDS: ZOLPIDEM TARTRATE 5 MG TABLET PO PRN (01:15)
[2023-02-14 05:52] VITALS: BP 128/70; PULSE 75; RESP 18; TEMP 97.5
[2023-02-14] MEDS: HEPARIN SODIUM,PORCINE 5,000 UNITS/ML VIAL SQ SCH ×2 (08:00→16:59)
[2023-02-14 08:05] LABS: BASOPHILS % (AUTO) 0.3 % (0.0-2.0); EOSINOPHILS % (AUTO) 2.7 % (1.0-6.0); HEMOGLOBIN 10.3 g/dL (13.5-17.5); LYMPHOCYTES # (AUTO) 1.3 K/uL (1.0-4.8); LYMPHOCYTES % (AUTO) 14.6 % (22.0-44.0); MEAN CORPUSCULAR HEMOGLOBIN 27.5 pg (26.0-34.0); MEAN CORPUSCULAR HGB CONC 32.1 G/dL (31.0-37.0); MEAN CORPUSCULAR VOLUME 86 fL (80-100); MONOCYTES % (AUTO) 11.6 % (2.0-9.0); NEUTROPHILS # (AUTO) 6.3 K/uL (1.8-7.7); NEUTROPHILS % (AUTO) 70.8 % (40.0-70.0); PLATELET COUNT (AUTO) 229 K/uL (150-450); RED BLOOD CELL COUNT(AUTO) 3.74 MIL/uL (4.50-5.90); RED CELL DISTRIBUTION WIDTH 14.6 % (11.5-14.5); WHITE BLOOD COUNT (AUTO) 8.9 K/uL (4.5-11.0)
[2023-02-14 08:28] LABS: CALCIUM, TOTAL 9.1 mg/dL (8.8-10.5); CREATININE 1.72 mg/dL (0.60-1.30); POTASSIUM 3.9 mmol/L (3.5-5.1)
[2023-02-14 08:58] VITALS: BP 130/92; PULSE 78; RESP 19; TEMP 97.8
[2023-02-14] MEDS: AmLODIPine BESYLATE 10 MG TABLET PO SCH (09:00)
[2023-02-14] MEDS: CHOLECALCIFEROL (VIT D3) 1,000 UNITS [25 MCG] TABLET PO SCH (09:00)
[2023-02-14] MEDS: DOCUSATE SODIUM 100 MG CAPSULE PO SCH ×2 (09:00→20:21)
[2023-02-14] MEDS: FLUTICASONE PROPIONATE 50 MCG/SPRAY 16 GM NASAL SPRAY NASAL SCH ×2 (09:00→20:22)
[2023-02-14] MEDS: MONTELUKAST SODIUM 10 MG TABLET PO SCH (09:00)
[2023-02-14] MEDS: PANTOPRAZOLE SODIUM 40 MG DR TABLET PO SCH (09:00)
[2023-02-14] MEDS ORDERED: SODIUM CHLORIDE 0.9% 1,000 ML IV ONE (11:30)
[2023-02-14] MEDS: ESCITALOPRAM OXALATE 10 MG TABLET PO SCH (11:30)
[2023-02-14 16:14] VITALS: BP 132/59; PULSE 72; RESP 19; TEMP 98.9
[2023-02-14] MEDS: GABAPENTIN 300 MG CAPSULE PO SCH ×2 (16:59→20:21)
[2023-02-14 19:24] VITALS: BP 139/72; PULSE 73; RESP 19; TEMP 98.5
[2023-02-15] MEDS: HEPARIN SODIUM,PORCINE 5,000 UNITS/ML VIAL SQ SCH ×4 (00:01→23:26)
[2023-02-15] MEDS: ZOLPIDEM TARTRATE 5 MG TABLET PO PRN (00:17)
[2023-02-15 04:47] VITALS: BP 125/64; PULSE 70; RESP 19; TEMP 97.8
[2023-02-15 07:05] LABS: BASOPHILS % (AUTO) 0.6 % (0.0-2.0); EOSINOPHILS % (AUTO) 6.6 % (1.0-6.0); HEMATOCRIT 33.4 % (41-53); HEMOGLOBIN 10.8 g/dL (13.5-17.5); LYMPHOCYTES # (AUTO) 1.9 K/uL (1.0-4.8); LYMPHOCYTES % (AUTO) 26.3 % (22.0-44.0); MEAN CORPUSCULAR HEMOGLOBIN 27.6 pg (26.0-34.0); MEAN CORPUSCULAR HGB CONC 32.3 G/dL (31.0-37.0); MEAN CORPUSCULAR VOLUME 86 fL (80-100); MONOCYTES # (AUTO) 0.7 K/uL (0.1-1.0); MONOCYTES % (AUTO) 9.7 % (2.0-9.0); NEUTROPHILS # (AUTO) 4.2 K/uL (1.8-7.7); NEUTROPHILS % (AUTO) 56.8 % (40.0-70.0); PLATELET COUNT (AUTO) 248 K/uL (150-450); RED CELL DISTRIBUTION WIDTH 14.8 % (11.5-14.5); WHITE BLOOD COUNT (AUTO) 7.4 K/uL (4.5-11.0)
[2023-02-15 07:15] LABS: CREATININE 1.22 mg/dL (0.60-1.30); POTASSIUM 4.3 mmol/L (3.5-5.1)
[2023-02-15 07:32] VITALS: BP 136/67; PULSE 67; RESP 18; TEMP 98.5
[2023-02-15] MEDS: PANTOPRAZOLE SODIUM 40 MG DR TABLET PO SCH (08:10)
[2023-02-15] MEDS: FLUTICASONE PROPIONATE 50 MCG/SPRAY 16 GM NASAL SPRAY NASAL SCH ×2 (08:11→20:34)
[2023-02-15] MEDS: GABAPENTIN 300 MG CAPSULE PO SCH ×3 (08:11→20:26)
[2023-02-15] MEDS: CHOLECALCIFEROL (VIT D3) 1,000 UNITS [25 MCG] TABLET PO SCH (08:11)
[2023-02-15] MEDS: ESCITALOPRAM OXALATE 10 MG TABLET PO SCH (08:11)
[2023-02-15] MEDS: AmLODIPine BESYLATE 10 MG TABLET PO SCH (08:11)
[2023-02-15] MEDS: MONTELUKAST SODIUM 10 MG TABLET PO SCH (08:11)
[2023-02-15] MEDS: DOCUSATE SODIUM 100 MG CAPSULE PO SCH ×2 (08:23→20:26)
[2023-02-15] MEDS ORDERED: LEVOFLOXACIN 750 MG/D5% WATER 150 ML IV SCH (12:00)
[2023-02-15] MEDS: TAMSULOSIN HCL 0.4 MG CAPSULE PO SCH ×2 (12:07→20:26)
[2023-02-15] MEDS ORDERED: LEVOFLOXACIN 250 MG/D5% WATER 50 ML IV SCH (14:00)
[2023-02-15] MEDS: SODIUM BICARBONATE 150 MEQ in DEXTROSE 5%-WATER 1,000 ML IV SCH (14:04)
[2023-02-15 15:48] VITALS: BP 107/67; PULSE 82; RESP 20; TEMP 98
[2023-02-15] MEDS: GuaiFENesin/D-METHORPHAN [SUGAR-FREE] 200-20MG/10 ML SYRUP UDCUP PO PRN ×2 (17:26→23:26)
[2023-02-15 20:07] VITALS: BP 114/68; PULSE 87; RESP 18; TEMP 98.4
[2023-02-15] MEDS: PEG 400/HYPROMELLOSE/GLYCERIN 15 ML OPHTHALMIC SOLUTION OU PRN (23:05)
[2023-02-16] MEDS: ZOLPIDEM TARTRATE 5 MG TABLET PO PRN (01:12)
[2023-02-16 05:19] VITALS: BP 126/68; PULSE 80; RESP 18; TEMP 98.2
[2023-02-16] MEDS: PEG 400/HYPROMELLOSE/GLYCERIN 15 ML OPHTHALMIC SOLUTION OU PRN (06:27)
[2023-02-16 07:10] LABS: BASOPHILS % (AUTO) 0.5 % (0.0-2.0); EOSINOPHILS % (AUTO) 7.3 % (1.0-6.0); HEMATOCRIT 28.8 % (41-53); HEMOGLOBIN 9.4 g/dL (13.5-17.5); LYMPHOCYTES # (AUTO) 1.2 K/uL (1.0-4.8); LYMPHOCYTES % (AUTO) 21.2 % (22.0-44.0); MEAN CORPUSCULAR HEMOGLOBIN 27.2 pg (26.0-34.0); MEAN CORPUSCULAR HGB CONC 32.7 G/dL (31.0-37.0); MEAN CORPUSCULAR VOLUME 83 fL (80-100); MONOCYTES # (AUTO) 0.8 K/uL (0.1-1.0); MONOCYTES % (AUTO) 13.7 % (2.0-9.0); NEUTROPHILS # (AUTO) 3.1 K/uL (1.8-7.7); NEUTROPHILS % (AUTO) 57.3 % (40.0-70.0); PLATELET COUNT (AUTO) 256 K/uL (150-450); RED BLOOD CELL COUNT(AUTO) 3.45 MIL/uL (4.50-5.90); RED CELL DISTRIBUTION WIDTH 14.3 % (11.5-14.5); WHITE BLOOD COUNT (AUTO) 5.5 K/uL (4.5-11.0)
[2023-02-16 07:21] LABS: ANION GAP 8 mmol/L (8-16); CALCIUM, TOTAL 8.6 mg/dL (8.8-10.5); CARBON DIOXIDE 28 mmol/L (22-29); CHLORIDE 105 mmol/L (98-107); CREATININE 1.13 mg/dL (0.60-1.30); GLOMERULAR FILTR. RATE CALC > 60 mL/min (>60); GLUCOSE,RANDOM 93 mg/dL (70-110); POTASSIUM 3.1 mmol/L (3.5-5.1); SODIUM SERUM 141 mmol/L (136-145); UREA NITROGEN, BLOOD 14 mg/dL (7-18)
[2023-02-16 08:41] VITALS: BP 134/67; PULSE 81; RESP 18; TEMP 97.6
[2023-02-16] MEDS: PANTOPRAZOLE SODIUM 40 MG DR TABLET PO SCH (08:42)
[2023-02-16] MEDS: MONTELUKAST SODIUM 10 MG TABLET PO SCH (08:43)
[2023-02-16] MEDS: TAMSULOSIN HCL 0.4 MG CAPSULE PO SCH (08:43)
[2023-02-16] MEDS: GABAPENTIN 300 MG CAPSULE PO SCH ×2 (08:43→17:07)
[2023-02-16] MEDS: ESCITALOPRAM OXALATE 10 MG TABLET PO SCH (08:44)
[2023-02-16] MEDS: CHOLECALCIFEROL (VIT D3) 1,000 UNITS [25 MCG] TABLET PO SCH (08:44)
[2023-02-16] MEDS: AmLODIPine BESYLATE 10 MG TABLET PO SCH (08:45)
[2023-02-16] MEDS: HEPARIN SODIUM,PORCINE 5,000 UNITS/ML VIAL SQ SCH ×2 (08:46→17:07)
[2023-02-16] MEDS: FLUTICASONE PROPIONATE 50 MCG/SPRAY 16 GM NASAL SPRAY NASAL SCH (08:48)
[2023-02-16] MEDS: DOCUSATE SODIUM 100 MG CAPSULE PO SCH (08:54)
[2023-02-16] MEDS: SODIUM BICARBONATE 150 MEQ in DEXTROSE 5%-WATER 1,000 ML IV SCH (10:29)
[2023-02-16] MEDS: GuaiFENesin/D-METHORPHAN [SUGAR-FREE] 200-20MG/10 ML SYRUP UDCUP PO PRN (14:05)
[2023-02-16] MEDS ORDERED: TAMS0.4C34 PO (14:47)
[2023-02-16] MEDS ORDERED: DOXY-354 PO (14:47)
[2023-02-16] MEDS ORDERED: HYPR15DR23 OU (14:48)
[2023-02-16] MEDS ORDERED: CEFD300C18 PO (14:48)
[2023-02-16 15:00] VITALS: BP 164/63; PULSE 88; RESP 19; TEMP 97.5
[2023-02-16] MEDS ORDERED: POTASSIUM CHLORIDE 10% 40 MEQ/30 ML LIQUID UDCUP PO ONE (15:30)
[2023-02-16 16:00] VITALS: BP 145/68
== END 2023-02-16 17:30 | disposition home health service (06) | DRG 70 ==
LOC: EMS 08:25 → 6N 13:36 → 6S 15:32
PROVIDERS: ADMIT Internal Medicine; ATTEND Internal Medicine
DX: G93.41 Metabolic encephalopathy (principal); E43 Unspecified severe protein-calorie malnutrition; J18.9 Pneumonia, unspecified organism; J44.0 Chronic obstructive pulmonary disease with (acute) lower respiratory infection; N17.9 Acute kidney failure, unspecified; N13.8 Other obstructive and reflux uropathy; K21.9 Gastro-esophageal reflux disease without esophagitis; I12.9 Hypertensive chronic kidney disease with stage 1 through stage 4 chronic kidney disease, or unspecified chronic kidney disease; N18.31 Chronic kidney disease, stage 3a; G89.29 Other chronic pain; E86.0 Dehydration; E87.6 Hypokalemia; R33.8 Other retention of urine; R31.29 Other microscopic hematuria; N13.9 Obstructive and reflux uropathy, unspecified; E88.09 Other disorders of plasma-protein metabolism, not elsewhere classified; Z20.822 Contact with and (suspected) exposure to COVID-19; N40.1 Benign prostatic hyperplasia with lower urinary tract symptoms; Z86.73 Personal history of transient ischemic attack (TIA), and cerebral infarction without residual deficits; Z68.21 Body mass index [BMI] 21.0-21.9, adult; Z79.899 Other long term (current) drug therapy; Z90.49 Acquired absence of other specified parts of digestive tract; Z87.891 Personal history of nicotine dependence
CPT/HCPCS: 51702; 70450; 71045; 80048; 80053; 80307; 81001; 82140; 82550; 83605; 84484; 85025; 85610; 85730; 87040; 92610; 93005; 97162; 97530; 99285; J1644; J1956; J3490; J7030; J7060; 36415-L1; 36415-TC